=== PATIENT | male | born 1950 | race Caucasian/White ===

== ENCOUNTER → 2017-02-14 | Outpatient (CLI) | payer OTHER ==
[~2017-02-14] MED LIST: AMOX875T PO; ASPEC81 PO; ASPI81TA28 PO; ATOR-24 PO; CETI10TA10 PO; FEXO1TAB45 PO; LPR25 PO; LPT40 PO; MULT-877 PO; OMEP40CA41 PO; PLV75 PO; RANI150T3 PO
[2017-02-14 14:10] LABS: HEMATOCRIT 41.4 % (42-52); MEAN CELL VOLUME 84.3 fL (80-100); MEAN CORPUSCULAR HEMOGLOBIN 27.7 pg (25-34); MEAN CORPUSCULAR HGB CONC 32.9 g/dl (32-36); MEAN PLATELET VOLUME 9.1 fL (7.4-10.4); PLATELET COUNT 203 K/uL (130-400); RED BLOOD COUNT 4.91 M/uL (4.7-6.1); WHITE BLOOD COUNT 4.76 K/uL (4.8-10.8)
[2017-02-14 14:20] LABS: ESTIMATED AVERAGE GLUCOSE 117 mg/dl; HA1C FLAG Normal (Normal); PROSTATE SPECIFIC ANTIGEN 3.21 ng/ml (0.000-4.000)
--- NOTE | 2017-02-20 11:29 | CODING QUERY MEDICAL NECESSITY ---
CQSUPPORTING DIAGNOSIS NEEDED A supporting diagnosis is required for the test/procedure performed on this patient in order for us to be reimbursed by the patient's insurance. Please provide a supporting diagnosis for the following test/procedure listed below next to the test name along with your signature. *If there is no additional diagnosis for this patient that would support the following test/procedure please document that below next to the test/procedure. Test(s)/Procedure(s) that require a supporting diagnosis: DOS 02/14/17 GLYCATED HEMOGLOBIN TEST Provider Signature: Date: Thank you Dimple Velazquez Health Information Management Once completed, please kindly fax back to [phone] For questions please call [phone]
== END | disposition home or self-care (01) ==
LOC: C.LABMFLN 09:05
PROVIDERS: ATTEND Internal Medicine Cardiovascular Disease
DX: E78.5 Hyperlipidemia, unspecified (principal); I10 Essential (primary) hypertension; I25.10 Atherosclerotic heart disease of native coronary artery without angina pectoris; R00.1 Bradycardia, unspecified; N40.0 Benign prostatic hyperplasia without lower urinary tract symptoms; R74.8 Abnormal levels of other serum enzymes; R73.03 Prediabetes; R35.0 Frequency of micturition

== ENCOUNTER → 2017-06-27 | Outpatient (CLI) | payer OTHER ==
[~2017-06-27] MED LIST changes: -AMOX875T PO
--- NOTE | 2017-06-27 09:52 | DIAGNOSTIC IMAGING REPORT ---
MRCP CLINICAL HISTORY: Pancreatic cyst. COMPARISON STUDY: MRCP dated 06/24/2016. TECHNIQUE: Abdominal MRCP is performed utilizing various T2-weighted sequences in the axial and coronal planes. IV contrast was not administered for this examination. 3-D reformats are created and assessed. FINDINGS: The gallbladder is normal in appearance. There is no evidence of cholelithiasis. There is no intra or extrahepatic biliary ductal dilatation. The common bile duct measures up to 5 mm. There is no evidence of choledocholithiasis. The pancreatic duct is normal in caliber. 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 There is no pleural effusion. The liver, spleen, pancreas, adrenal glands, and kidneys otherwise grossly normal. There is no evidence of bowel obstruction. There is no abdominal ascites or lymphadenopathy seen. IMPRESSION: 1. Unremarkable MRCP. 2. There is unchanged appearance of two cystic lesions in the pancreatic body measuring up to 10 mm along the course of the pancreatic duct. 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 Dictated: 06/27/2017 9:21 AM Transcribed: 06/27/2017 9:52 AM Umberto Electronically signed by: Tomi Gonzalez M.D. 06/27/2017 10:01 AM Dictated Date/Time: 06/27/2017 9:21 AM
== END | disposition home or self-care (01) ==
LOC: C.MRI 08:32
PROVIDERS: ATTEND Registered Nurse
DX: K86.2 Cyst of pancreas (principal)

== ENCOUNTER 2017-08-05 18:00 | Inpatient (IN) | payer OTHER ==
[~2017-08-05] VITALS: Ht 167.6 cm; Wt 64.0 kg
[~2017-08-05 18:00] MED LIST changes: -ASPI81TA28 PO; -ATOR-24 PO; -OMEP40CA41 PO
[2017-08-05] MEDS ORDERED: SODIUM CHLORIDE 0.9% 1000ML 1,000 ML IV STA ×2 (18:17→19:07)
[2017-08-05] MEDS ORDERED: ONDANSETRON INJ 2 MG/ML 2 ML VIAL IV STA (18:17)
--- NOTE | 2017-08-05 18:22 | EMERGENCY ROOM VISIT NOTE ---
History Report prepared by Scribe: Josseline Jo Under the Supervision of: Dr. Daniel Luu D.O. First contact with patient: 18:07 Chief Complaint: ABDOMINAL PAIN Stated Complaint: VOMITING AND SEVERE PAIN IN STOMACH History of Present Illness The patient is a 67 year old male who presents to the Emergency Room with complaints of persistent abdominal pain that started yesterday. The pain is located in the middle of his abdomen and does not radiate anywhere. He rates his discomfort as a 10/10 in severity. He has also been nauseous and vomiting since yesterday. He has not eaten much of anything so far today. The patient denies any diarrhea. He has not experienced any pain or swelling in his legs. He believes he has been running a fever, but did not check his temperature at home. His urine has been dark in color but he denies any hematuria or dysuria. He denies any recent chest pain or shortness of breath. The patient has undergone an appendectomy but he still has his gallbladder. His PCP is Dr. Daniel Rodriguez. His reports he has experienced a previous NE and has [address] The patient takes a daily baby Aspirin, but no other blood thinners. He notes he did undergo a biopsy of his pancreas by Dr. Mac at [facility] recently, but states the biopsy came back negative. Source of History: patient, spouse/significant other () Onset: yesterday Position: abdomen Symptom Intensity: 10/10 Timing: other (persistent) Associated Symptoms: + fevers, + nausea, + vomiting, No chest pain, No SOB, No diarrhea, No urinary symptoms Review of Systems See HPI for pertinent positives & negatives. A total of 10 systems reviewed and were otherwise negative. Past Medical & Surgical Surgical Problems: (1) History of heart artery stent (2) History of hernia repair Family History Cancer Heart disease Hypertension Social History Smoking Status: Never Smoker Alcohol Use: occasionally Drug Use: none Marital Status: Housing Status: lives with significant other Occupation Status: retired Current/Historical Medications Scheduled Aspirin (Aspirin Ec), 81 MG PO DAILY Atorvastatin (Lipitor), 40 MG PO HS Multiple Vitamins W/ Minerals (Multiple Vitamin/Minerals), 1 TAB PO DAILY Omeprazole (Prilosec), 40 MG PO DAILY Scheduled PRN Cetirizine Hcl (Zyrtec), 10 MG PO DAILY PRN for ALLERGIC REACTION Ranitidine Hcl (Zantac), 150 MG PO DAILY PRN for GI Upset Allergies Coded Allergies: Fentanyl (Unverified Allergy, Severe, CONFUSION, 08/05/17) Midazolam (Unverified Allergy, Severe, CONFUSION, 08/05/17) Sulfa Antibiotics (Verified Allergy, Unknown, RASH, 08/05/17) Acetaminophen (Verified Adverse Reaction, Unknown, n/v, 08/05/17) Doxycycline (Unverified Adverse Reaction, Unknown, fever/ syncope, ) Oxycodone (Verified Adverse Reaction, Unknown, n/v, 08/05/17) Physical Exam Vital Signs Date Time Temp Pulse Resp B/P (MAP) Pulse Ox O2 Delivery O2 Flow Rate FiO2 08/05/17 19:38 61 16 160/83 97 Room Air 08/05/17 19:07 62 08/05/17 18:04 36.9 67 18 167/89 98 Room Air Physical Exam GENERAL: Patient is awake, alert, in no acute distress, patient is resting comfortably and showing no signs of anxiety EYES: The conjunctivae are clear. The pupils are round and reactive. EARS, NOSE, MOUTH AND THROAT: The nose is without any evidence of any deformity. Mucous membranes are moist tongue is midline NECK: The neck is nontender and supple. RESPIRATORY: Normal respiratory effort is noted there is no evidence of wheezing rhonchi or rales CARDIOVASCULAR: Regular rate and rhythm noted there no murmurs rubs or gallops normal S1 normal S2 GASTROINTESTINAL: The abdomen is moderately distended, significant epigastric and RUQ tenderness to palpation. BACK: No midline tenderness or or step-off noted range of motion in flexion extension as well as rotation no signs of muscle spasm noted MUSCULOSKELETAL/EXTREMITIES: There is no evidence of gross deformity full range of motion is noted in the hips and shoulders SKIN: There is no obvious evidence of any rash. There are no petechiae, pallor or cyanosis noted. NEUROLOGIC: Patient is awake alert and oriented x3 Medical Decision & Procedures ER Provider Diagnostic Interpretation: Radiology results as stated below per my review and radiologist interpretation: PA CHEST WITH ABDOMINAL SERIES CLINICAL HISTORY: Generalized abdominal pain. FINDINGS: A PA chest radiograph is compared to study dated 10/18/2014. The cardiomediastinal silhouette is unremarkable. The lungs and pleural spaces are clear. No pneumothorax is seen. The bony thorax is grossly intact. Supine and erect abdominal radiographs are correlated with MRCP dated 06/27/2017. There is a nonobstructed abdominal bowel gas pattern. No evidence of intraperitoneal free air is seen. There is moderate colonic fecal retention. There are no abnormal abdominal calcifications. The lumbosacral spine and bony pelvis appear intact. A metallic structure projecting over the left lower abdomen may be external to the patient. IMPRESSION: 1. No active disease in the chest. 2. Nonobstructed abdominal bowel gas pattern noting moderate colonic fecal retention. 3. A metallic structures projecting over the left pelvis may be external to the patient. Clinical correlation will be required. Electronically signed by: Tomi Gonzalez M.D. 08/05/2017 7:41 PM Laboratory Results 08/05/17 18:22 Red Blood Count 5.41, Mean Corpuscular Volume 82.3, Mean Corpuscular Hemoglobin 29.0, Mean Corpuscular Hemoglobin Concent 35.3, Mean Platelet Volume 9.4, Neutrophils (%) (Auto) 81.3, Lymphocytes (%) (Auto) 7.7, Monocytes (%) (Auto) 10.5, Eosinophils (%) (Auto) 0.1, Basophils (%) (Auto) 0.1, Neutrophils # (Auto ) 11.11, Lymphocytes # (Auto) 1.05, Monocytes # (Auto) 1.43, Eosinophils # (Auto ) 0.01, Basophils # (Auto) 0.01 08/05/17 18:22 Test 08/05/17 18:22 White Blood Count 13.65 K/uL (4.8-10.8) Red Blood Count 5.41 M/uL (4.7-6.1) Hemoglobin 15.7 g/dL (14.0-18.0) Hematocrit 44.5 % (42-52) Mean Corpuscular Volume 82.3 fL (80-100) Mean Corpuscular Hemoglobin 29.0 pg (25-34) Mean Corpuscular Hemoglobin Concent 35.3 g/dl (32-36) Platelet Count 197 K/uL (130-400) Mean Platelet Volume 9.4 fL (7.4-10.4) Neutrophils (%) (Auto) 81.3 % Lymphocytes (%) (Auto) 7.7 % Monocytes (%) (Auto) 10.5 % Eosinophils (%) (Auto) 0.1 % Basophils (%) (Auto) 0.1 % Neutrophils # (Auto) 11.11 K/uL (1.4-6.5) Lymphocytes # (Auto) 1.05 K/uL (1.2-3.4) Monocytes # (Auto) 1.43 K/uL (0.11-0.59) Eosinophils # (Auto) 0.01 K/uL (0-0.5) Basophils # (Auto) 0.01 K/uL (0-0.2) RDW Standard Deviation 45.6 fL (36.4-46.3) RDW Coefficient of Variation 15.1 % (11.5-14.5) Immature Granulocyte % (Auto) 0.3 % Immature Granulocyte # (Auto) 0.04 K/uL (0.00-0.02) Prothrombin Time 10.7 SECONDS (9.0-12.0) Prothromb Time International Ratio 1.0 (0.9-1.1) Activated Partial Thromboplast Time 23.8 SECONDS (21.0-31.0) Partial Thromboplastin Ratio 0.9 Urine Color ANAIS Urine Appearance CLEAR (CLEAR) Urine pH 5.5 (4.5-7.5) Urine Specific [place] 1.027 (1.000-1.030) Urine Protein 1+ (NEG) Urine Glucose (UA) NEG (NEG) Urine Ketones NEG (NEG) Urine Occult Blood 2+ (NEG) Urine Nitrite POS (NEG) Urine Bilirubin 1+ (NEG) Urine Urobilinogen NEG (NEG) Urine Leukocyte Esterase SMALL (NEG) Urine WBC (Auto) 10-30 /hpf (0-5) Urine RBC (Auto) 10-30 /hpf (0-4) Urine Hyaline Casts (Auto) 0 /lpf (0-5) Urine Epithelial Cells (Auto) 20-30 /lpf (0-5) Urine Bacteria (Auto) 1+ (NEG) Urine Mucus PRESENT (NONE PRSENT) Anion Gap 8.0 mmol/L (3-11) Est Creatinine Clear Calc Drug Dose 58.8 ml/min Estimated GFR () 80.1 Estimated GFR (Non- 69.1 BUN/Creatinine Ratio 13.0 (10-20) Calcium Level 8.8 mg/dl (8.5-10.1) Total Bilirubin 2.7 mg/dl (0.2-1) Direct Bilirubin 1.1 mg/dl (0-0.2) Aspartate Amino Transf (AST/SGOT) 47 U/L (15-37) Alanine Aminotransferase (ALT/SGPT) 73 U/L (12-78) Alkaline Phosphatase 256 U/L (45-117) Total Creatine Kinase 98 U/L (39-308) Creatine Kinase MB 0.9 ng/ml (0.5-3.6) Creatine Kinase MB Ratio 0.9 (0-3.0) Troponin I < 0.015 ng/ml (0-0.045) Total Protein 7.5 gm/dl (6.4-8.2) Albumin 4.0 gm/dl (3.4-5.0) Lipase 4115 U/L (73-393) Laboratory results per my review. Medications Administered Medications (Trade) Dose Ordered Sig/Jay Jay Route Start Time Stop Time Status Last Admin Dose Admin Sodium Chloride 1,000 ml @ 999 mls/hr Q1H1M STAT IV 08/05/17 18:17 08/05/17 19:17 DC 08/05/17 18:32 999 MLS/HR Ondansetron HCl (Zofran Inj) 4 mg NOW STAT IV 08/05/17 18:17 08/05/17 18:19 DC 08/05/17 18:36 4 MG Morphine Sulfate (MoRPHine SULFATE INJ) 4 mg Q15M PRN IV 08/05/17 18:30 08/19/17 18:29 08/05/17 18:37 4 MG Pantoprazole Sodium 40 mg/ Syringe 10 ml @ 5 mls/min NOW ONCE IV 08/05/17 19:15 08/05/17 19:16 DC 08/05/17 19:35 5 MLS/MIN Famotidine (Pepcid 20mg/100 ml) 20 mg ONE STAT IV 08/05/17 19:07 08/05/17 19:09 DC 08/05/17 19:20 20 MG Sodium Chloride 1,000 ml @ 200 mls/hr Q5H STAT IV 08/05/17 19:07 08/05/17 21:24 DC 08/05/17 19:52 200 MLS/HR ECG Indication: abdominal pain Rate (beats per minute): 61 Rhythm: normal sinus Findings: no ectopy, other (no acute ST segment abnormalities) Change: no significant change (No change from 10/19/2014) ED Course 1812: The patient was evaluated in room C6. A complete history and physical examination were performed. 1816: Zofran 4 mg IV, NSS 1000 ml @ 999 mls/hr IV. 1829: Morphine Sulfate 4 mg IV. 1904: I reevaluated the patient. He is resting comfortably. I discussed his results so far. 1906: NSS 1000 ml @ 200 mls/hr IV, Famotidine 20 mg IV. 1914: Pantoprazole Sodium 40 mg/Syringe 10 ml @ 5 mls/min IV. 1943: I discussed the patients case with Dr. Barker. She recommends the patient be further evaluated by the hospital medicine team. 2014: I discussed the patients case with Dr. Jiang, [facility] Hospitalist. The patient will be further evaluated. Medical Decision Prior records/ancillary studies reviewed. Triage Nursing notes reviewed. The patient's history was concerning for abdominal pain. Differential diagnosis: Etiologies such as appendicitis, diverticulitis, PUD, biliary pathology, UTI, pancreatitis, obstruction, mesenteric ischemia, aortic pathology, infections, inflammatory bowel disease, renal colic, as well as others were entertained. The patient is a 67-year-old male who presented to the emergency department for evaluation of epigastric and right upper quadrant abdominal pain. The patient has had upper abdominal pain recently and was diagnosed with a pancreatic cyst. He had an ERCP with Dr. Mac and had biopsy of the pancreatic cyst on June 27. The patient states that over the last few days he's been having worsening upper abdominal pain. This started with nausea and vomiting as well. On physical exam he had very significant abdominal tenderness. He was found have an elevated white blood cell count. He also had an elevation in his lipase. I reviewed the patient's previous radiographic studies. His MRCP was negative for gallbladder pathology at that time. He was not found have gallstones on previous radiographic studies. The patient was treated with IV fluids IV pain medicine and IV antiemetics. He was also given proton pump inhibitors and H2 blockers. I discussed his case with the on-call gastroenterology's. At this time they're recommending that we continue to treat the patient with nothing by mouth status and IV pain medication IV fluids. I discussed his case with the on-call [facility] hospitalist. They've agreed to evaluate the patient in the emergency department for further management and disposition. Medication Reconcilliation Current Medication List: was personally reviewed by me Blood Pressure Screening Patient's blood pressure: Elevated blood pressure Blood pressure disposition: Elevated BP felt to be situational Consults Time Called: 1935 Consulting Physician: [facility] Returned Call: 1943 I discussed the patients case with [facility]. She recommends the patient be further evaluated by the hospital medicine team. Additional Consults: Time Called: 1954 Consulted Physician: Dr. Jiang [facility] Hospitalist Returned Call: 2014 Additional Comments: I discussed the patients case with Dr. Jiang [facility] Hospitalist. The patient will be further evaluated. Impression Primary Impression: Pancreatitis Additional Impressions: Nausea & vomiting Abdominal pain Scribe Attestation The scribe's documentation has been prepared under my direction and personally reviewed by me in its entirety. I confirm that the note above accurately reflects all work, treatment, procedures, and medical decision making performed by me. Departure Information Dispostion Being Evaluated By Hospitalist Referrals Daniel Rodriguez M.D. (PCP) Patient Instructions My [facility] Problem Qualifiers Primary Impression: Pancreatitis Chronicity: acute Pancreatitis type: unspecified pancreatitis type Acute pancreatitis complication: unspecified Qualified Codes: K85.90 - Acute pancreatitis without necrosis or infection, unspecified Additional Impressions: Nausea & vomiting Vomiting type: unspecified Vomiting Intractability: non-intractable Qualified Codes: R11.2 - Nausea with vomiting, unspecified Abdominal pain Abdominal location: epigastric Qualified Codes: R10.13 - Epigastric pain
[2017-08-05] MEDS ORDERED: MoRPHine SULFATE 4 MG/ML 1 ML CARP\\VIAL IV PRN (18:30)
[2017-08-05 18:31] LABS: BASO % 0.1 %; BASO ABS # 0.01 K/uL (0-0.2); COMPLETE YES; EOS % 0.1 %; HEMATOCRIT 44.5 % (42-52); IG% 0.3 %; LYMPH % 7.7 %; LYMPH ABS # 1.05 K/uL (1.2-3.4); MEAN CELL VOLUME 82.3 fL (80-100); MEAN CORPUSCULAR HGB CONC 35.3 g/dl (32-36); MEAN PLATELET VOLUME 9.4 fL (7.4-10.4); MONO % 10.5 %; NEUT % 81.3 %; PLATELET COUNT 197 K/uL (130-400); RED BLOOD COUNT 5.41 M/uL (4.7-6.1); WHITE BLOOD COUNT 13.65 K/uL (4.8-10.8)
[2017-08-05 18:43] LABS: PARTIAL THROMBOPLASTIN RATIO 0.9; PROTHROMBIN TIME (PATIENT) 10.7 SECONDS (9.0-12.0)
[2017-08-05 18:51] LABS: ALT/SGPT 73 U/L (12-78); BLOOD UREA NITROGEN 14 mg/dl (7-18); CALCIUM 8.8 mg/dl (8.5-10.1); CARBON DIOXIDE 28 mmol/L (21-32); CHLORIDE 101 mmol/L (98-107); GLUCOSE 118 mg/dl (70-99); POTASSIUM 3.9 mmol/L (3.5-5.1); SODIUM 137 mmol/L (136-145)
[2017-08-05 18:56] LABS: ALKALINE PHOSPHATASE 256 U/L (45-117); AST/SGOT 47 U/L (15-37); CKMB/CK RATIO 0.9 (0-3.0)
[2017-08-05] MEDS ORDERED: FAMOTIDINE 20MG/102 ML D5W IV STA (19:07)
[2017-08-05] MEDS ORDERED: PANTOprazole INJ 40 MG in SYRINGE 0 ML IV ONE (19:15)
[2017-08-05 19:25] LABS: URINE APPEARANCE CLEAR (CLEAR); URINE EPITHELIAL CELL AUTO 20-30 /lpf (0-5); URINE NITRITE POS (NEG); URINE PH 5.5 (4.5-7.5); URINE SPECIFIC GRAVITY 1.027 (1.000-1.030); UROBILINOGEN NEG (NEG)
[2017-08-05 19:26] LABS: URINE BILIRUBIN 1+ (NEG)
[2017-08-05 19:29] LABS: MANUAL MICROSCOPIC REQUIRED? NO; REVIEW REQ? YES; URINE COLOR AMBER
[2017-08-05 19:35] LABS: URINE MUCUS PRESENT (NONE PRSENT)
[2017-08-05] MEDS ORDERED: ASPI81TA28 PO (19:35)
[2017-08-05] MEDS ORDERED: ATOR-24 PO (19:35)
[2017-08-05] MEDS ORDERED: OMEP40CA41 PO (19:35)
--- NOTE | 2017-08-05 19:42 | DIAGNOSTIC IMAGING REPORT ---
PA CHEST WITH ABDOMINAL SERIES CLINICAL HISTORY: Generalized abdominal pain. FINDINGS: A PA chest radiograph is compared to study dated 10/18/2014. The cardiomediastinal silhouette is unremarkable. The lungs and pleural spaces are clear. No pneumothorax is seen. The bony thorax is grossly intact. Supine and erect abdominal radiographs are correlated with MRCP dated 06/27/2017. There is a nonobstructed abdominal bowel gas pattern. No evidence of intraperitoneal free air is seen. There is moderate colonic fecal retention. There are no abnormal abdominal calcifications. The lumbosacral spine and bony pelvis appear intact. A metallic structure projecting over the left lower abdomen may be external to the patient. IMPRESSION: 1. No active disease in the chest. 2. Nonobstructed abdominal bowel gas pattern noting moderate colonic fecal retention. 3. A metallic structures projecting over the left pelvis may be external to the patient. Clinical correlation will be required. Electronically signed by: Tomi Gonzalez M.D. 08/05/2017 7:41 PM Dictated Date/Time: 08/05/2017 7:39 PM
[2017-08-05] MEDS ORDERED: MAGNESIUM HYDROXIDE SUSP 30 ML UDC PO PRN (20:00)
[2017-08-05] MEDS ORDERED: ACETAMINOPHEN 325 MG TAB PO PRN (20:00)
[2017-08-05] MEDS ORDERED: ONDANSETRON INJ 2 MG/ML 2 ML VIAL IV PRN (20:00)
[2017-08-05] MEDS ORDERED: ALUMINUM/MAGNESIUM/SIMETH (MAALOX MAX) 30 ML UDC PO PRN (20:00)
[2017-08-05] MEDS ORDERED: ZOLPIDEM TARTRATE 5 MG TAB PO PRN (20:00)
[2017-08-05] MEDS ORDERED: HYDROmorphone INJ 0.5 MG/0.5 ML SYR IV PRN (20:00)
[2017-08-05] MEDS ORDERED: POLYETHYLENE (MIRALAX) 17 GM PACK PO PRN (20:00)
--- NOTE | 2017-08-05 20:36 | History and Physical ---
History & Physical Date & Time of Service: Aug 05, 2017 at 20:17 Chief Complaint: Vomiting And Severe Pain In Stomach Primary Care Physician: Daniel Rodriguez M.D. History of Present Illness Source: patient 67 y/o M Hx CAD, GERD - recent workup including biopsy for a pancreatic body lesion which is likely a cyst. Presents with abdominal pain - described as epigastric - nausea, vomiting and fever. Denies CP, SOB. Initial labs are consistent with acute pancreatitis. An ERCP and [ancreatic biopsy were performed on 06/27 and are likely unrelated. Past Medical/Surgical History 1) Pancreatic cysts 2) CAD - STEMI 2013 - L circ stent 3) Echo done in wake of [place] reveledd an EF of 40% with inf akinesis - this has apparently recovered 4) GERD Family History Cancer Heart disease Hypertension Social History Smoking Status: Never Smoker Drug Use: none Marital Status: Occupational Status: retired Allergies Coded Allergies: Fentanyl (Unverified Allergy, Severe, CONFUSION, 08/05/17) Midazolam (Unverified Allergy, Severe, CONFUSION, 08/05/17) Sulfa Antibiotics (Verified Allergy, Unknown, RASH, 08/05/17) Acetaminophen (Verified Adverse Reaction, Unknown, n/v, 08/05/17) Doxycycline (Unverified Adverse Reaction, Unknown, fever/ syncope, ) Oxycodone (Verified Adverse Reaction, Unknown, n/v, 08/05/17) Home Medications Scheduled Aspirin (Aspirin Ec), 81 MG PO DAILY Atorvastatin (Lipitor), 40 MG PO HS Multiple Vitamins W/ Minerals (Multiple Vitamin/Minerals), 1 TAB PO DAILY Omeprazole (Prilosec), 40 MG PO DAILY Scheduled PRN Cetirizine Hcl (Zyrtec), 10 MG PO DAILY PRN for ALLERGIC REACTION Ranitidine Hcl (Zantac), 150 MG PO DAILY PRN for GI Upset Review of Systems Constitutional: No fever, No chills, No sweats Eyes: No worsening of vision ENT: No hearing loss, No nasal symptoms Respiratory: No cough, No wheezing Cardiovascular: No chest pain, No PND Abdomen: + pain, + nausea, + vomiting Musculoskeletal: No joint pain Genitourinary - Male: No hematuria Neurologic: No memory loss, No weakness Psychiatric: No depression symptoms Endocrine: No fatigue Hematologic / Lymphatic: No abnormal bleeding/bruising Integumentary: No rash Allergic / Immunologic: No environmental allergies Physical Exam Vital Signs Date Time Temp Pulse Resp B/P (MAP) Pulse Ox O2 Delivery O2 Flow Rate FiO2 08/05/17 19:38 61 16 160/83 97 Room Air 08/05/17 19:07 62 08/05/17 18:04 36.9 67 18 167/89 98 Room Air General Appearance: WD/WN, no apparent distress Head: normocephalic Eyes: normal inspection ENT: normal ENT inspection, pharynx normal Neck: supple, no JVD Respiratory/Chest: chest non-tender, lungs clear, normal breath sounds Cardiovascular: regular rate, rhythm, no edema, no gallop, no JVD, no murmur, normal peripheral pulses Abdomen/GI: normal bowel sounds, soft, + tenderness (Mostly mid and RUQ) Back: normal inspection, no CVA tenderness Extremities/Musculoskelatal: normal inspection, no calf tenderness, normal capillary refill 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, no motor/sensory deficits, alert, normal mood/affect, normal reflexes, oriented x 3 Skin: normal color Diagnostics Laboratory Results Results Past 24 Hours Test 08/05/17 18:22 Range/Units White Blood Count 13.65 4.8-10.8 K/uL Red Blood Count 5.41 4.7-6.1 M/uL Hemoglobin 15.7 14.0-18.0 g/dL Hematocrit 44.5 42-52 % Mean Corpuscular Volume 82.3 80-100 fL Mean Corpuscular Hemoglobin 29.0 25-34 pg Mean Corpuscular Hemoglobin Concent 35.3 32-36 g/dl Platelet Count 197 130-400 K/uL Mean Platelet Volume 9.4 7.4-10.4 fL Neutrophils (%) (Auto) 81.3 % Lymphocytes (%) (Auto) 7.7 % Monocytes (%) (Auto) 10.5 % Eosinophils (%) (Auto) 0.1 % Basophils (%) (Auto) 0.1 % Neutrophils # (Auto) 11.11 1.4-6.5 K/uL Lymphocytes # (Auto) 1.05 1.2-3.4 K/uL Monocytes # (Auto) 1.43 0.11-0.59 K/uL Eosinophils # (Auto) 0.01 0-0.5 K/uL Basophils # (Auto) 0.01 0-0.2 K/uL RDW Standard Deviation 45.6 36.4-46.3 fL RDW Coefficient of Variation 15.1 11.5-14.5 % Immature Granulocyte % (Auto) 0.3 % Immature Granulocyte # (Auto) 0.04 0.00-0.02 K/uL Prothrombin Time 10.7 9.0-12.0 SECONDS Prothromb Time International Ratio 1.0 0.9-1.1 Activated Partial Thromboplast Time 23.8 21.0-31.0 SECONDS Partial Thromboplastin Ratio 0.9 Urine Color ANAIS Urine Appearance CLEAR CLEAR Urine pH 5.5 4.5-7.5 Urine Specific [place] 1.027 1.000-1.030 Urine Protein 1+ NEG Urine Glucose (UA) NEG NEG Urine Ketones NEG NEG Urine Occult Blood 2+ NEG Urine Nitrite POS NEG Urine Bilirubin 1+ NEG Urine Urobilinogen NEG NEG Urine Leukocyte Esterase SMALL NEG Urine WBC (Auto) 10-30 0-5 /hpf Urine RBC (Auto) 10-30 0-4 /hpf Urine Hyaline Casts (Auto) 0 0-5 /lpf Urine Epithelial Cells (Auto) 20-30 0-5 /lpf Urine Bacteria (Auto) 1+ NEG Urine Mucus PRESENT NONE PRSENT Sodium Level 137 136-145 mmol/L Potassium Level 3.9 3.5-5.1 mmol/L Chloride Level 101 98-107 mmol/L Carbon Dioxide Level 28 21-32 mmol/L Anion Gap 8.0 3-11 mmol/L Blood Urea Nitrogen 14 7-18 mg/dl Creatinine 1.10 0.60-1.40 mg/dl Est Creatinine Clear Calc Drug Dose 58.8 ml/min Estimated GFR () 80.1 Estimated GFR (Non- 69.1 BUN/Creatinine Ratio 13.0 10-20 Random Glucose 118 70-99 mg/dl Calcium Level 8.8 8.5-10.1 mg/dl Total Bilirubin 2.7 0.2-1 mg/dl Direct Bilirubin 1.1 0-0.2 mg/dl Aspartate Amino Transf (AST/SGOT) 47 15-37 U/L Alanine Aminotransferase (ALT/SGPT) 73 12-78 U/L Alkaline Phosphatase 256 45-117 U/L Total Creatine Kinase 98 39-308 U/L Creatine Kinase MB 0.9 0.5-3.6 ng/ml Creatine Kinase MB Ratio 0.9 0-3.0 Troponin I < 0.015 0-0.045 ng/ml Total Protein 7.5 6.4-8.2 gm/dl Albumin 4.0 3.4-5.0 gm/dl Lipase 4115 73-393 U/L Diagnostic Radiology MRCP 06/27 10 mm and 8 mm cystic lesions in the pancreatic body adjacent to the main duct Impression Assessment and Plan 67 y/o M Hx CAD, GERD - recent workup including biopsy for a pancreatic body lesion which is likely a cyst. Presents with abdominal pain - described as epigastric - nausea, vomiting and fever. Denies CP, SOB. Initial labs are consistent with acute pancreatitis. An ERCP and pancreatic biopsy were performed on 06/27 and are likely unrelated. 1) Acute pancreatitis - we are pending a biliary ultrasound as his LFTs are elevated which may indicate a distal obstruction. If there is ductal dilatation , we may proceed to a CT scan. The pt's content management specialist has been consulted. Pt will be kept NPO, placed on IVF and narcotics as needed for pain control. The pt has leukocytosis and describes a fever at home so that we will start IV antibiotics pending AM eval. 2) CAD - No evidence of ACS - cont ASA, Statin 3) GERD - cont PPi Full code - Heparin prophylaxis - total time for this admit including review of labs, meds, imabing, records - discussion with pt and ER attending - 37 min Level of Care Med/Surg Resuscitation Status FULL RESUSCITATION VTE Prophylaxis VTE Risk Assessment Done? Y/N: Yes Risk Level: Moderate Given or contraindicated: Unfractionated heparin SQ
[2017-08-05 21:53] VITALS: BP 148/78; PULSE 74; TEMP 37.1; O2SAT 95; Ht 167.6 cm; Wt 64.0 kg
[2017-08-05] MEDS: ERTAPENEM IV 1 GM in SODIUM CHLOR 0.9% AD-VAN 50ML 50 ML IV SCH (22:12)
[2017-08-05] MEDS: D5NSS + 20MEQ KCL 1,000 ML IV SCH (22:12)
[2017-08-05] MEDS: HEPARIN SOD 5000 UNIT/0.5 ML CARP SQ SCH (22:22)
[2017-08-05] MEDS: ATORVASTATIN 20 MG TAB PO SCH (23:47)
[2017-08-06] VITALS (9 sets, daily range): BP systolic 103–157; BP diastolic 63–86; PULSE 48–66; TEMP 36.4–36.9; O2SAT 95–99
[2017-08-06] MEDS: D5NSS + 20MEQ KCL 1,000 ML IV SCH (04:39)
[2017-08-06] MEDS: HEPARIN SOD 5000 UNIT/0.5 ML CARP SQ SCH ×3 (06:11→21:44)
[2017-08-06 06:55] LABS: HEMATOCRIT 39.8 % (42-52); MEAN CELL VOLUME 83.3 fL (80-100); MEAN CORPUSCULAR HEMOGLOBIN 27.8 pg (25-34); MEAN CORPUSCULAR HGB CONC 33.4 g/dl (32-36); MEAN PLATELET VOLUME 9.8 fL (7.4-10.4); PLATELET COUNT 157 K/uL (130-400); RED BLOOD COUNT 4.78 M/uL (4.7-6.1); WHITE BLOOD COUNT 11.76 K/uL (4.8-10.8)
[2017-08-06 07:19] LABS: CALCIUM 7.9 mg/dl (8.5-10.1); MAGNESIUM 1.9 mg/dl (1.8-2.4)
--- NOTE | 2017-08-06 07:46 | DIAGNOSTIC IMAGING REPORT ---
ABDOMINAL ULTRASOUND, RIGHT UPPER QUADRANT HISTORY: Generalized abdominal pain.. COMPARISON: MRCP 06/27/2017. FINDINGS: Pancreas: Not well visualized due to overlying bowel gas. Liver: Unremarkable. Gallbladder: There is gallbladder wall thickening measuring up to 5 mm. There are appears to be gallbladder sludge. Possible small stone at the gallbladder neck. Punctate echogenic focus at the gallbladder fundus. CBD: 5 mm. Right kidney: No hydronephrosis. IMPRESSION: Diffuse gallbladder wall thickening with gallbladder sludge and a possible stone at the gallbladder neck. This is new from the prior studies and raises the possibility of acute cholecystitis. Clinical correlation recommended. Electronically signed by: Yunier Vickers M.D. 08/06/2017 7:45 AM Dictated Date/Time: 08/06/2017 7:41 AM
[2017-08-06] MEDS ORDERED: INFLUENZA VACCINE HIGH DOSE 65+ 0.5 ML SYR IM. ONE (08:00)
[2017-08-06] MEDS ORDERED: INFLUENZA ADMINISTRATION CHARGE ONE (08:00)
[2017-08-06] MEDS ORDERED: NON-FORMULARY MEDICATION (Omeprazole (Prilosec) 40 MG) PO SCH (09:00)
[2017-08-06] MEDS: ASPIRIN 81 MG ECTAB PO SCH (10:51)
[2017-08-06] MEDS: AMPICILLIN/SULBACTAM SOD INJ 3,000 MG in SODIUM CHLORIDE 0.9% 100ML 100 ML IV SCH ×3 (10:51→20:37)
--- NOTE | 2017-08-06 10:52 | Gastrointestinal Consultation ---
Gastrointestinal Consultation Date of Consultation: Aug 06, 2017 Attending Physician: Dr. Pope Consulting Physician: Dr. Barker Reason for Consultation: pancreatitis History of Present Illness Patient is a 67 year old male with a known benign pancreatic cyst (s/p EUS with biopsy on [address] Mac) who presented ot the ER last night with complaints of nausea, vomiting and abdominal pain for 24+ hours. On arrival he was tachycardic. Labs were significant for elevated lipase of 4000 as well as Tbili of 2.7, Dbili of 1.1 and AP of 250. WBC was also elevated with a left shift. Imaging was significant for gallbladder wall thickening to 5mm as well as a possible stone in the GB neck. He was made NPO, given IVF and PRN pain meds and antiemetics and is feeling much better this morning. Pain has almost completely resolved. Labs this AM show improvement of lipase, bili, and AP ( not yet normalized). Past Medical/Surgical History Medical Problems: (1) Pancreatitis Status: Acute Past Medical History: as noted in HPI Past Surgical History: reviewed with patient, non-contributory Family History Cancer Heart disease Hypertension non-contributory Social History Smoking Status: Never Smoker Alcohol Use: occasionally Drug Use: none Marital Status: Housing Status: lives with significant other Occupation Status: retired Allergies Coded Allergies: Fentanyl (Unverified Allergy, Severe, CONFUSION, 08/05/17) Midazolam (Unverified Allergy, Severe, CONFUSION, 08/05/17) Sulfa Antibiotics (Verified Allergy, Unknown, RASH, 08/05/17) Acetaminophen (Verified Adverse Reaction, Unknown, n/v, 08/05/17) Doxycycline (Unverified Adverse Reaction, Unknown, fever/ syncope, ) Oxycodone (Verified Adverse Reaction, Unknown, n/v, 08/05/17) Current Medications Home Meds and Scripts Medications Dose Route/Sig Max Daily Dose Days Date Category Lipitor (Atorvastatin Calcium) 40 Mg Tab 40 Mg PO HS 08/05/17 Reported Aspirin Ec (Aspirin) 81 Mg Tab 81 Mg PO DAILY 08/05/17 Reported Prilosec (Omeprazole) 40 Mg Cap 40 Mg PO DAILY 08/05/17 Reported Multiple Vitamin/Minerals (Multiple Vitamins W/ Minerals) 1 Tab Tab 1 Tab PO DAILY 10/18/14 Reported Zyrtec (Cetirizine Hcl) 10 Mg Tab 10 Mg PO DAILY PRN 10/18/14 Reported Zantac (Ranitidine HCl) 150 Mg Tab 150 Mg PO DAILY PRN 10/18/14 Reported Review of Systems 12 systems reviewed and negative except as noted in HPI Physical Exam Date Time Temp Pulse Resp B/P (MAP) Pulse Ox O2 Delivery O2 Flow Rate FiO2 08/06/17 08:00 99 Room Air 08/06/17 07:19 36.9 66 18 116/73 (87) 99 08/06/17 00:00 Room Air 08/05/17 21:53 37.1 74 18 148/78 95 Room Air 08/05/17 20:57 74 18 146/86 97 08/05/17 20:49 70 18 146/86 95 08/05/17 19:38 61 16 160/83 97 Room Air 08/05/17 19:07 62 08/05/17 18:04 36.9 67 18 167/89 98 Room Air General Appearance: WD/WN, no apparent distress Eyes: normal inspection, PERRL ENT: normal ENT inspection, hearing grossly normal, pharynx normal Neck: supple, no adenopathy, no JVD Respiratory/Chest: chest non-tender, lungs clear, normal breath sounds, no accessory muscle use Cardiovascular: regular rate, rhythm, no edema, no murmur Abdomen: normal bowel sounds, non tender, soft Extremities: normal range of motion, non-tender, no pedal edema, no calf tenderness Neurologic/Psych: forging machine hand II-XII nml as tested, no motor/sensory deficits, alert, normal mood/affect, oriented x 3 Skin: normal color, no jaundice, warm/dry, no rash Laboratory Results Last 24 Hours Test 08/05/17 18:22 08/06/17 06:30 White Blood Count 13.65 K/uL 11.76 K/uL Red Blood Count 5.41 M/uL 4.78 M/uL Hemoglobin 15.7 g/dL 13.3 g/dL Hematocrit 44.5 % 39.8 % Mean Corpuscular Volume 82.3 fL 83.3 fL Mean Corpuscular Hemoglobin 29.0 pg 27.8 pg Mean Corpuscular Hemoglobin Concent 35.3 g/dl 33.4 g/dl Platelet Count 197 K/uL 157 K/uL Mean Platelet Volume 9.4 fL 9.8 fL Neutrophils (%) (Auto) 81.3 % Lymphocytes (%) (Auto) 7.7 % Monocytes (%) (Auto) 10.5 % Eosinophils (%) (Auto) 0.1 % Basophils (%) (Auto) 0.1 % Neutrophils # (Auto) 11.11 K/uL Lymphocytes # (Auto) 1.05 K/uL Monocytes # (Auto) 1.43 K/uL Eosinophils # (Auto) 0.01 K/uL Basophils # (Auto) 0.01 K/uL RDW Standard Deviation 45.6 fL 47.5 fL RDW Coefficient of Variation 15.1 % 15.5 % Immature Granulocyte % (Auto) 0.3 % Immature Granulocyte # (Auto) 0.04 K/uL Prothrombin Time 10.7 SECONDS Prothromb Time International Ratio 1.0 Activated Partial Thromboplast Time 23.8 SECONDS Partial Thromboplastin Ratio 0.9 Urine Color ANAIS Urine Appearance CLEAR Urine pH 5.5 Urine Specific [place] 1.027 Urine Protein 1+ Urine Glucose (UA) NEG Urine Ketones NEG Urine Occult Blood 2+ Urine Nitrite POS Urine Bilirubin 1+ Urine Urobilinogen NEG Urine Leukocyte Esterase SMALL Urine WBC (Auto) 10-30 /hpf Urine RBC (Auto) 10-30 /hpf Urine Hyaline Casts (Auto) 0 /lpf Urine Epithelial Cells (Auto) 20-30 /lpf Urine Bacteria (Auto) 1+ Urine Mucus PRESENT Sodium Level 137 mmol/L 139 mmol/L Potassium Level 3.9 mmol/L 4.0 mmol/L Chloride Level 101 mmol/L 108 mmol/L Carbon Dioxide Level 28 mmol/L 26 mmol/L Anion Gap 8.0 mmol/L 6.0 mmol/L Blood Urea Nitrogen 14 mg/dl 11 mg/dl Creatinine 1.10 mg/dl 1.00 mg/dl Est Creatinine Clear Calc Drug Dose 58.8 ml/min 64.6 ml/min Estimated GFR () 80.1 89.9 Estimated GFR (Non- 69.1 77.5 BUN/Creatinine Ratio 13.0 11.0 Random Glucose 118 mg/dl 110 mg/dl Calcium Level 8.8 mg/dl 7.9 mg/dl Total Bilirubin 2.7 mg/dl 1.7 mg/dl Direct Bilirubin 1.1 mg/dl 0.5 mg/dl Aspartate Amino Transf (AST/SGOT) 47 U/L 31 U/L Alanine Aminotransferase (ALT/SGPT) 73 U/L 50 U/L Alkaline Phosphatase 256 U/L 194 U/L Total Creatine Kinase 98 U/L Creatine Kinase MB 0.9 ng/ml Creatine Kinase MB Ratio 0.9 Troponin I < 0.015 ng/ml Total Protein 7.5 gm/dl 6.2 gm/dl Albumin 4.0 gm/dl 3.2 gm/dl Lipase 4115 U/L 1218 U/L Magnesium Level 1.9 mg/dl Impression Patient is a 67 year old male with pancreatic cysts (benign) who presented to the ER with complaints of nausea, vomiting and abd pain and labs consistent with pancreatitis. Imaging and pattern of LFT elevation consistent with GB/ stone source. Numbers and symptoms better this AM. Plan - Surgical consultation for cholecystectomy. - Follow LFTs and lipase tomorrow. - Once pain has resolved OK to slowly advance diet as tolerated pending surgery plans. - IVF hydration at 200ml/hr. - PRN analgesia and anti-emetics.
--- NOTE | 2017-08-06 12:00 | History and Physical ---
History & Physical Date Aug 06, 2017. Chief Complaint abd pain History of Present Illness The patient is a 67 year old male with complaints of abd pain- w/u shows likely gallstone pancreatitis- lipase coming down evidence on u/s of acute cholecystitis w/ stone in neck of gb. Past Medical/Surgical History Surgical Problems: (1) History of heart artery stent (2) History of hernia repair Allergies Coded Allergies: Fentanyl (Unverified Allergy, Severe, CONFUSION, 08/05/17) Midazolam (Unverified Allergy, Severe, CONFUSION, 08/05/17) Sulfa Antibiotics (Verified Allergy, Unknown, RASH, 08/05/17) Acetaminophen (Verified Adverse Reaction, Unknown, n/v, 08/05/17) Doxycycline (Unverified Adverse Reaction, Unknown, fever/ syncope, ) Oxycodone (Verified Adverse Reaction, Unknown, n/v, 08/05/17) Home Medications Scheduled Aspirin (Aspirin Ec), 81 MG PO DAILY Atorvastatin (Lipitor), 40 MG PO HS Multiple Vitamins W/ Minerals (Multiple Vitamin/Minerals), 1 TAB PO DAILY Omeprazole (Prilosec), 40 MG PO DAILY Scheduled PRN Cetirizine Hcl (Zyrtec), 10 MG PO DAILY PRN for ALLERGIC REACTION Ranitidine Hcl (Zantac), 150 MG PO DAILY PRN for GI Upset Physical Examination Skin: warm/dry Head: atraumatic Respiratory/Chest: no respiratory distress Cardiovascular: regular rate, rhythm Abdomen / GI: + pertinent finding (soft, min pain) Neurologic/Psych: alert Diagnosis acute cholecystitis Plan of Treatment for laparoscopic cholecystectomy, possible open operation. pt at risk for developing necrotizing cholecystitis OR today
[2017-08-06] MEDS ORDERED: LABETALOL HCL IV 5 MG/ML 20ML IV PRN (12:45)
[2017-08-06] MEDS ORDERED: ONDANSETRON INJ 2 MG/ML 2 ML VIAL IV PRN ×2 (12:45→18:45)
[2017-08-06] MEDS ORDERED: MEPERIDINE HCL 25 MG/ML CARP IV PRN (12:45)
[2017-08-06] MEDS ORDERED: EpHEDrine SULFATE INJ 50 MG/ML AMP IV PRN (12:45)
[2017-08-06] MEDS ORDERED: HYDROmorphone INJ 1 MG/ML SYR IV PRN ×2 (12:45→18:45)
[2017-08-06] MEDS ORDERED: ATROPINE SULFATE 0.1 MG/ML 5ML SYR IV PRN (12:45)
[2017-08-06] MEDS ORDERED: HYDROmorphone INJ 2 MG/ML SYR/VIAL ONE (17:38)
[2017-08-06] MEDS ORDERED: PROPOFOL IV EMULSION 10 MG/ML 20 ML VIAL IV ONE (17:38)
[2017-08-06] MEDS ORDERED: ONDANSETRON INJ 2 MG/ML 2 ML VIAL ONE (17:39)
[2017-08-06] MEDS ORDERED: ROCURONIUM BROMIDE 10 MG/ML 5 ML VIAL IV ONE (17:39)
[2017-08-06] MEDS ORDERED: LIDOCAINE HCL 2% 2 ML VIAL (20MG/ML) ONE (17:39)
--- NOTE | 2017-08-06 17:40 | Family Medicine Progress Note ---
Progress Note Date of Service Aug 06, 2017. Subjective Pt evaluation today including: conversation w/ patient, physical exam, chart review, lab review Pain: well-controlled PO Intake: nothing by mouth Voiding: no voiding problems 67-year-old male with past medical history of coronary artery disease status post stent placement, GERD, status post EUS with biopsy of a pancreatic cyst present to the ER with complaints of epigastric pain, nausea and vomiting with started about 2 days ago. He also complained of a low-grade fever. Initial labs were consistent with acute pancreatitis and he was made nothing by mouth and treated with IV fluids. States that his pain is fairly well controlled. Denies any new episodes of vomiting but continues to feel nauseous. Denies any chest pain, shortness of breath. Constitutional: No fever, No chills Eyes: No worsening of vision ENT: No hearing loss Respiratory: No cough, No sputum Cardiovascular: No chest pain Abdomen: + pain (epigastric area), + nausea, + vomiting Musculoskeletal: No joint pain Male : No dysuria, No incontinence Neurologic: No memory loss Psychiatric: No depression symptoms Heme: No abnormal bleeding/bruising Medications Current Inpatient Medications Medications (Trade) Dose Ordered Sig/[place] Route Start Time Stop Time Status Last Admin Dose Admin Heparin Sodium (Porcine) (Heparin Sq 5000 Unit/0.5ml) 5,000 unit Q8 SQ 08/05/17 22:00 09/04/17 21:59 08/06/17 06:11 5,000 UNIT Acetaminophen (Tylenol Tab) 650 mg Q4H PRN PO 08/05/17 20:00 09/04/17 19:59 Al Hydrox/Mg Hydrox/Simethicone (Maalox Max Susp) 15 ml Q4H PRN PO 08/05/17 20:00 09/04/17 19:59 Magnesium Hydroxide (Milk Of Magnesia Susp) 30 ml Q6H PRN PO 08/05/17 20:00 09/04/17 19:59 Polyethylene (Miralax Powder Packet) 17 gm DAILY PRN PO 08/05/17 20:00 09/04/17 19:59 Zolpidem Tartrate (Ambien Tab) 5 mg HSZ PRN PO 08/05/17 20:00 09/04/17 19:59 Ondansetron HCl (Zofran Inj) 4 mg Q6H PRN IV 08/05/17 20:00 09/04/17 19:59 Aspirin (Ecotrin Tab) 81 mg DAILY PO 08/06/17 09:00 09/05/17 08:59 08/06/17 10:51 81 MG Atorvastatin Calcium (Lipitor Tab) 40 mg HS PO 08/05/17 21:00 09/04/17 20:59 08/05/17 23:47 40 MG Hydromorphone HCl (Dilaudid Inj) 0.5 mg Q3H PRN IV 08/05/17 20:00 08/19/17 19:59 Omeprazole (Prilosec - Substitute) 40 mg QAM PO 08/06/17 09:00 09/05/17 08:59 08/06/17 10:52 40 MG Ertapenem 1 gm/ Sodium Chloride 50 ml @ 120 mls/hr Q24H IV 08/05/17 22:00 08/15/17 21:59 08/05/17 22:12 120 MLS/HR Ampicillin Sodium/ Sulbactam Sodium 3000 mg/Sodium Chloride 108 ml @ 200 mls/hr Q6H IV 08/06/17 09:00 08/16/17 08:59 08/06/17 16:06 200 MLS/HR Hydromorphone HCl (Dilaudid Inj) 0.5 mg Q5M PRN IV 08/06/17 12:45 08/06/17 17:45 Meperidine HCl (Demerol Inj) 25 mg Q5M PRN IV 08/06/17 12:45 08/06/17 17:45 Ondansetron HCl (Zofran Inj) 4 mg ONE PRN IV 08/06/17 12:45 08/06/17 17:45 Labetalol HCl (Normodyne IV) 5 mg Q5M PRN IV 08/06/17 12:45 08/06/17 17:45 Ephedrine Sulfate (EpHEDrine SULFATE INJ) 5 mg Q5M PRN IV 08/06/17 12:45 08/06/17 17:45 Atropine Sulfate (Atropine Sulfate 0.1MG/Ml Inj) 0.5 mg Q1M PRN IV 08/06/17 12:45 08/06/17 17:45 Objective Vital Signs Date Time Temp Pulse Resp B/P (MAP) Pulse Ox O2 Delivery O2 Flow Rate FiO2 08/06/17 14:45 36.9 59 20 145/81 (102) 97 08/06/17 08:00 99 Room Air 08/06/17 07:19 36.9 66 18 116/73 (87) 99 08/06/17 00:00 Room Air 08/05/17 21:53 37.1 74 18 148/78 95 Room Air 08/05/17 20:57 74 18 146/86 97 08/05/17 20:49 70 18 146/86 95 08/05/17 19:38 61 16 160/83 97 Room Air 08/05/17 19:07 62 08/05/17 18:04 36.9 67 18 167/89 98 Room Air Physical Exam General Appearance: WD/WN, no apparent distress Eyes: normal inspection ENT: normal ENT inspection, TMs normal Neck: supple Respiratory/Chest: chest non-tender, lungs clear, normal breath sounds, no respiratory distress Cardiovascular: regular rate, rhythm Abdomen: normal bowel sounds, soft, + tenderness (in the epigastric and right upper quadrant area) Extremities: no pedal edema Neurologic/Psychiatric: alert, normal mood/affect, oriented x 3 Skin: normal color Laboratory Results 08/06/17 06:30 08/06/17 06:30 Test 08/05/17 18:22 08/06/17 06:30 Immature Granulocyte % (Auto) 0.3 % White Blood Count 13.65 K/uL (4.8-10.8) Red Blood Count 5.41 M/uL (4.7-6.1) 4.78 M/uL (4.7-6.1) Hemoglobin 15.7 g/dL (14.0-18.0) Hematocrit 44.5 % (42-52) Mean Corpuscular Volume 82.3 fL (80-100) 83.3 fL (80-100) Mean Corpuscular Hemoglobin 29.0 pg (25-34) 27.8 pg (25-34) Mean Corpuscular Hemoglobin Concent 35.3 g/dl (32-36) 33.4 g/dl (32-36) Platelet Count 197 K/uL (130-400) Mean Platelet Volume 9.4 fL (7.4-10.4) 9.8 fL (7.4-10.4) Neutrophils (%) (Auto) 81.3 % Lymphocytes (%) (Auto) 7.7 % Monocytes (%) (Auto) 10.5 % Eosinophils (%) (Auto) 0.1 % Basophils (%) (Auto) 0.1 % Neutrophils # (Auto) 11.11 K/uL (1.4-6.5) Lymphocytes # (Auto) 1.05 K/uL (1.2-3.4) Monocytes # (Auto) 1.43 K/uL (0.11-0.59) Eosinophils # (Auto) 0.01 K/uL (0-0.5) Basophils # (Auto) 0.01 K/uL (0-0.2) Immature Granulocyte # (Auto) 0.04 K/uL (0.00-0.02) Prothrombin Time 10.7 SECONDS (9.0-12.0) Prothromb Time International Ratio 1.0 (0.9-1.1) Activated Partial Thromboplast Time 23.8 SECONDS (21.0-31.0) Partial Thromboplastin Ratio 0.9 Urine Color ANAIS Urine Appearance CLEAR (CLEAR) Urine pH 5.5 (4.5-7.5) Urine Specific [place] 1.027 (1.000-1.030) Urine Protein 1+ (NEG) Urine Glucose (UA) NEG (NEG) Urine Ketones NEG (NEG) Urine Occult Blood 2+ (NEG) Urine Nitrite POS (NEG) Urine Bilirubin 1+ (NEG) Urine Urobilinogen NEG (NEG) Urine Leukocyte Esterase SMALL (NEG) Urine WBC (Auto) 10-30 /hpf (0-5) Urine RBC (Auto) 10-30 /hpf (0-4) Urine Hyaline Casts (Auto) 0 /lpf (0-5) Urine Epithelial Cells (Auto) 20-30 /lpf (0-5) Urine Bacteria (Auto) 1+ (NEG) Urine Mucus PRESENT (NONE PRSENT) Total Creatine Kinase 98 U/L (39-308) Creatine Kinase MB 0.9 ng/ml (0.5-3.6) Creatine Kinase MB Ratio 0.9 (0-3.0) Troponin I < 0.015 ng/ml (0-0.045) RDW Standard Deviation 47.5 fL (36.4-46.3) RDW Coefficient of Variation 15.5 % (11.5-14.5) Anion Gap 6.0 mmol/L (3-11) Est Creatinine Clear Calc Drug Dose 64.6 ml/min Estimated GFR () 89.9 Estimated GFR (Non- 77.5 BUN/Creatinine Ratio 11.0 (10-20) Calcium Level 7.9 mg/dl (8.5-10.1) Magnesium Level 1.9 mg/dl (1.8-2.4) Total Bilirubin 1.7 mg/dl (0.2-1) Direct Bilirubin 0.5 mg/dl (0-0.2) Aspartate Amino Transf (AST/SGOT) 31 U/L (15-37) Alanine Aminotransferase (ALT/SGPT) 50 U/L (12-78) Alkaline Phosphatase 194 U/L (45-117) Total Protein 6.2 gm/dl (6.4-8.2) Albumin 3.2 gm/dl (3.4-5.0) Lipase 1218 U/L (73-393) Assessment and Plan 67-year-old male with past medical history of coronary artery disease status post stent placement, GERD, status post EUS with biopsy of a pancreatic cyst present to the ER with complaints of epigastric pain, nausea and vomiting with started about 2 days ago. Acute pancreatitis with acute calculus cholecystitis - Abdominal ultrasound suggestive of gallbladder thickening to 5 mm with sludge and possible gallstone at the neck of the gallbladder. - Lipase decreased from 4115 to 1218, trend lipases - Alkaline phosphatase decreased from 256 to 194 - Nothing by mouth - Continue IV fluids at 150 mLs/hour - Consult gastroenterology- appreciate input - Consult general surgery for cholecystectomy -Empiric antibiotic coverage with Unasyn every 6 hours CAD: - History of STEMI in 2013 with stent in left circumflex, echo with an EF of 50- 55% hypokinesis of inferolateral and mid inferior wall -Continue aspirin and statin GERD: - Continue PPI DVT prophylaxis: -Heparin subcutaneous Full code Disposition: MedSurg, anticipation of cholecystectomy tonight Discharge planning: home Resident Tracking Resident Involvement: Resident Care Provided Care Provided: Adult Hospital Medicine Reviewed: Pt Seen/Exam by Me History Resident Physician Supervision Note: I interviewed and examined the patient. Discussed with Dr. Borrero and agree with findings and plan as documented in the note. Any exceptions or clarifications are listed here: Pt feeling very well when I saw him, was still awaiting cholecystectomy. No further abd pain. He reports he can easily walk up and down a flight of stairs without CP or SOB. In fact, he walks every day about 2-4 miles up and down steep hills and never has any MACK or CP. Vitals reviewed NAD, AAOx3 RRR no mgr, no carotid bruits bilat CTAB no wcr Abd +BS soft NT ND Ext no edema, 2+ pulses DP bilat Labs, ECG reviewed, Rad reports reviewed 67 yo male with acute calculous cholecystitis and acute gallstone pancreatitis-- > pancreatitis improving, awaiting lap ksenia -continue treatment as above, ivf, pain control, npo until after surgery -follow LFTs, lipase -he is at average risk for surgery as he can achieve at least 4 METS and no recent ACS --> proceed with surgery -continue ASA, statin, not on metoprolol any longer due to previous bradycardia Documented By: Bita Foster
[2017-08-06] MEDS ORDERED: GLYCOPYRROLATE INJ 0.2 MG/ML VIAL ONE (18:15)
[2017-08-06] MEDS ORDERED: NEOSTIGMINE METHYLSULFATE 5 MG/5 ML SYR ONE (18:15)
[2017-08-06] MEDS ORDERED: LABETALOL HCL IV 5 MG/ML 20ML IV ONE (18:15)
[2017-08-06] MEDS ORDERED: BUPIVACAINE 0.5 % 5 MG/1 ML MPF 30ML VIAL ONE (18:36)
--- NOTE | 2017-08-06 18:43 | [facility] Operative Report ---
Operative Report Operative Date Aug 06, 2017. Pre-Operative Diagnosis acute cholecystitis Post-Operative Diagnosis same as preoperative diagnosis, necrotizing cholecystitis Procedure(s) Performed laparscopic cholecystectomy Surgeon Dr. Rodriguez Findings severe inflammation and colonic ileus Specimens A. Gallbladder Drains # [address] MELVIN Anesthesia gen Complication(s) None Disposition Recovery Room / PACU I attest to the content of the Intraoperative Record and any orders documented therein. Any exceptions are noted below.
[2017-08-06] MEDS ORDERED: PROMETHAZINE HCL INJ 25 MG in SODIUM CHLORIDE 0.9% 50ML 50 ML IV PRN (18:45)
[2017-08-06] MEDS ORDERED: PROMETHAZINE HCL INJ 12.5 MG in SODIUM CHLORIDE 0.9% 50ML 50 ML IV PRN (19:00)
--- NOTE | 2017-08-06 19:22 | Anesthesiology Progress Note ---
Anesthesia Post Op Note Date & Time Aug 06, 2017 at 19:22 Vital Signs Pain Intensity: 0 Vital Signs Past 12 Hours Date Time Temp Pulse Resp B/P (MAP) Pulse Ox O2 Delivery O2 Flow Rate FiO2 08/06/17 19:20 50 16 133/70 99 Oxymask 2 08/06/17 19:10 48 16 128/70 99 Oxymask 10 08/06/17 19:00 46 16 134/66 99 Oxymask 10 08/06/17 18:50 36.9 54 16 127/69 100 Oxymask 10 08/06/17 14:45 36.9 59 20 145/81 (102) 97 08/06/17 08:00 99 Room Air Notes Mental Status: alert / awake / arousable, participated in evaluation Pt Amnestic to Procedure: Yes Nausea / Vomiting: adequately controlled Pain: adequately controlled Airway Patency, RR, SpO2: stable & adequate BP & HR: stable & adequate Hydration State: stable & adequate Anesthetic Complications: no major complications apparent
[2017-08-06] MEDS: ATORVASTATIN 20 MG TAB PO SCH (20:41)
--- NOTE | 2017-08-06 21:08 | OPERATIVE REPORT ---
DATE OF OPERATION: 08/06/2017 NAME OF OPERATION: Laparoscopic cholecystectomy. PREOPERATIVE DIAGNOSIS: Acute cholecystitis. POSTOPERATIVE DIAGNOSES: Same with necrotizing cholecystitis and colonic ileus. STAFF SURGEON: Dr. Rodriguez. ANESTHESIA: General. DESCRIPTION OF PROCEDURE: The patient was brought in the operating room and placed on the operating table in supine position. Pneumatic stockings and orogastric tube were placed. His abdomen was prepped and draped in usual fashion. 0.5% plain Marcaine was used to anesthetize all incisions. Incision was made just above the umbilicus, carrying dissection down to the fascia, placing a Veress needle producing pneumoperitoneum. An 11 mm port placed at this level and then a camera passed. The patient had a significant dilation of his colon, which appeared to be a colonic ileus. He did have some elevated lipase and mild pancreatitis on admission. Three 5 mm ports were placed under visualization. The ileus did create a little bit of problem with exposing the gallbladder; however, I was able to retract it and aspirate bile from it, which was thick. Dissection was carried out at the estrella hepatis, the patient had a very inflamed gallbladder consistent with necrotizing cholecystitis. The cystic duct and cystic artery were identified, clipped and transected, the gallbladder was then dissected away from the liver bed, it was very hemorrhagic and it was placed in an Endobag. After appropriate irrigation and hemostasis, a #15 round Donnie-Reardon drain was placed through the lateral 5 mm port site, secured to skin using 3-0 nylon suture and placed in the subhepatic space. At this point, the ports were removed. The gallbladder was removed through the umbilical site. The umbilical fascia closed using interrupted 0 Vicryl suture. Skin reapproximated using 4-0 nylon suture and dressings applied. The patient was transferred to recovery room in stable condition. I attest to the content of the Intraoperative Record and any orders documented therein. Any exception s are noted below.
[2017-08-06] MEDS: ERTAPENEM IV 1 GM in SODIUM CHLOR 0.9% AD-VAN 50ML 50 ML IV SCH (21:41)
[2017-08-06 23:13] LABS: HEMATOCRIT 37.7 % (42-52)
[2017-08-07 03:43] VITALS: BP 99/64; PULSE 52; TEMP 36.7; O2SAT 96
[2017-08-07] MEDS: AMPICILLIN/SULBACTAM SOD INJ 3,000 MG in SODIUM CHLORIDE 0.9% 100ML 100 ML IV SCH ×2 (03:51→07:59)
[2017-08-07 05:05] LABS: HEMATOCRIT 34.8 % (42-52); MEAN CELL VOLUME 83.9 fL (80-100); MEAN CORPUSCULAR HGB CONC 33.3 g/dl (32-36); PLATELET COUNT 109 K/uL (130-400); RED BLOOD COUNT 4.15 M/uL (4.7-6.1); WHITE BLOOD COUNT 9.03 K/uL (4.8-10.8)
[2017-08-07 05:29] LABS: BUN/CREATININE RATIO 14.1 (10-20); CALCIUM 7.8 mg/dl (8.5-10.1); CREATININE 0.93 mg/dl (0.60-1.40); MAGNESIUM 1.9 mg/dl (1.8-2.4); POTASSIUM 4.3 mmol/L (3.5-5.1)
[2017-08-07] MEDS: HEPARIN SOD 5000 UNIT/0.5 ML CARP SQ SCH (05:32)
--- NOTE | 2017-08-07 06:05 | Surgery Progress Note ---
Surgery Progress Note Date of Service Aug 07, 2017. Subjective awake, alert expected drainage H/H, labs ok, lipase normal Objective Vital Signs: Date Time Temp Pulse Resp B/P (MAP) Pulse Ox O2 Delivery O2 Flow Rate FiO2 08/07/17 03:43 36.7 52 14 99/64 (76) 96 Room Air 08/07/17 00:05 Room Air 08/06/17 23:34 36.4 55 14 103/63 (76) 95 Room Air 08/06/17 21:47 36.4 50 18 157/69 (98) 98 Nasal Cannula 2.0 08/06/17 20:53 36.4 48 16 143/75 (97) 97 Room Air 08/06/17 20:17 36.4 48 16 142/86 (104) 97 Room Air 08/06/17 19:45 97 Nasal Cannula 2.0 08/06/17 19:45 Nasal Cannula 2.0 08/06/17 19:30 36.4 47 16 133/66 99 Oxymask 2 08/06/17 19:20 50 16 133/70 99 Oxymask 2 08/06/17 19:10 48 16 128/70 99 Oxymask 10 08/06/17 19:00 46 16 134/66 99 Oxymask 10 08/06/17 18:50 36.9 54 16 127/69 100 Oxymask 10 08/06/17 16:00 97 Room Air 08/06/17 14:45 36.9 59 20 145/81 (102) 97 08/06/17 08:00 99 Room Air 08/06/17 07:19 36.9 66 18 116/73 (87) 99 General Appearance: no apparent distress Respiratory/Chest: no respiratory distress Abdomen: + distended Incision(s): intact Laboratory Results: Results Past 24 Hours Test 08/06/17 06:30 08/06/17 23:03 08/07/17 04:51 Range/Units White Blood Count 11.76 9.03 4.8-10.8 K/uL Red Blood Count 4.78 4.15 4.7-6.1 M/uL Hemoglobin 13.3 12.5 11.6 14.0-18.0 g/dL Hematocrit 39.8 37.7 34.8 42-52 % Mean Corpuscular Volume 83.3 83.9 80-100 fL Mean Corpuscular Hemoglobin 27.8 28.0 25-34 pg Mean Corpuscular Hemoglobin Concent 33.4 33.3 32-36 g/dl RDW Standard Deviation 47.5 47.8 36.4-46.3 fL RDW Coefficient of Variation 15.5 15.6 11.5-14.5 % Platelet Count 157 109 130-400 K/uL Mean Platelet Volume 9.8 9.0 7.4-10.4 fL Sodium Level 139 141 136-145 mmol/L Potassium Level 4.0 4.3 3.5-5.1 mmol/L Chloride Level 108 106 98-107 mmol/L Carbon Dioxide Level 26 27 21-32 mmol/L Anion Gap 6.0 8.0 3-11 mmol/L Blood Urea Nitrogen 11 13 7-18 mg/dl Creatinine 1.00 0.93 0.60-1.40 mg/dl Est Creatinine Clear Calc Drug Dose 64.6 69.5 ml/min Estimated GFR () 89.9 98.1 Estimated GFR (Non- 77.5 84.6 BUN/Creatinine Ratio 11.0 14.1 10-20 Random Glucose 110 117 70-99 mg/dl Calcium Level 7.9 7.8 8.5-10.1 mg/dl Magnesium Level 1.9 1.9 1.8-2.4 mg/dl Total Bilirubin 1.7 1.1 0.2-1 mg/dl Direct Bilirubin 0.5 0.5 0-0.2 mg/dl Aspartate Amino Transf (AST/SGOT) 31 40 15-37 U/L Alanine Aminotransferase (ALT/SGPT) 50 53 12-78 U/L Alkaline Phosphatase 194 166 45-117 U/L Total Protein 6.2 5.3 6.4-8.2 gm/dl Albumin 3.2 2.7 3.4-5.0 gm/dl Lipase 1218 303 73-393 U/L Phosphorus Level 3.0 2.5-4.9 mg/dl Globulin 2.6 2.5-4.0 gm/dl Albumin/Globulin Ratio 1.0 0.9-2 Assessment & Plan 08/07/17- s/p lap ksenia w/ drain- necrotizing cholecystitis- hemorrhagic lipase nl, plts low- hold heparin/ Lovenox dilated colon- concern for ileus- encourage ambulation. will need 2-3 days in hospital
[2017-08-07 07:12] VITALS: BP 105/59; PULSE 58; TEMP 36.6; O2SAT 95
[2017-08-07] MEDS: DOCUSATE SODIUM/SENNA 50/8.6MG TAB PO SCH ×2 (08:02→21:25)
[2017-08-07] MEDS: ASPIRIN 81 MG ECTAB PO SCH (08:02)
--- NOTE | 2017-08-07 09:51 | Gastroenterology Progress Note ---
Progress Note Date of Service: Aug 07, 2017 Subjective Pt evaluation today including: conversation w/ patient, physical exam, chart review, lab review, review of studies, review of inpatient medication list Mr. Gallo is a 67 yr old male patient admitted with pancreatitis on 08/05. He had undergone EUS with biopsy on 2016 for benign pancreatic cyst. He began with pain on 08/04. On arrival, lipase 4000 as Tbili of 2.7, Dbili of 1.1 and AP of 250. WBC was also elevated with a left shift. US with gallbladder wall thickening (5mm). Pain resolved with IV fluids, bowel rest. He underwent Lap ksenia with drain on 08/07 for necrotizing cholecystitis by Dr. Rodriguez. He has been afebrile. This morning, lipase 303, T bili 1.1, AST 40 ALT 53, Alk Phos 166. He is ambulating in his room and has only minor free of pain. MELVIN draining pink liquid. Review of Systems Constitutional: No fever ENT: No hearing loss Respiratory: No cough Cardiac: No chest pain Abdomen: + pain (resolved), No nausea, No vomiting, No diarrhea, No constipation, No GI bleeding Male : No dysuria Neuro: No memory loss Psych: No depression symptoms Heme: No abnormal bleeding/bruising Endo: No fatigue Skin: No rash Medications Current Inpatient Medications Medications (Trade) Dose Ordered Sig/Jay Jay Route Start Time Stop Time Status Last Admin Dose Admin Acetaminophen (Tylenol Tab) 650 mg Q4H PRN PO 08/05/17 20:00 09/04/17 19:59 Al Hydrox/Mg Hydrox/Simethicone (Maalox Max Susp) 15 ml Q4H PRN PO 08/05/17 20:00 09/04/17 19:59 Magnesium Hydroxide (Milk Of Magnesia Susp) 30 ml Q6H PRN PO 08/05/17 20:00 09/04/17 19:59 Polyethylene (Miralax Powder Packet) 17 gm DAILY PRN PO 08/05/17 20:00 09/04/17 19:59 Zolpidem Tartrate (Ambien Tab) 5 mg HSZ PRN PO 08/05/17 20:00 09/04/17 19:59 Ondansetron HCl (Zofran Inj) 4 mg Q6H PRN IV 08/05/17 20:00 09/04/17 19:59 Aspirin (Ecotrin Tab) 81 mg DAILY PO 08/06/17 09:00 09/05/17 08:59 08/07/17 08:02 81 MG Atorvastatin Calcium (Lipitor Tab) 40 mg HS PO 08/05/17 21:00 09/04/17 20:59 08/06/17 20:41 40 MG Hydromorphone HCl (Dilaudid Inj) 0.5 mg Q3H PRN IV 08/05/17 20:00 08/19/17 19:59 Omeprazole (Prilosec - Substitute) 40 mg QAM PO 08/06/17 09:00 09/05/17 08:59 08/07/17 08:01 40 MG Ertapenem 1 gm/ Sodium Chloride 50 ml @ 120 mls/hr Q24H IV 08/05/17 22:00 08/15/17 21:59 08/06/17 21:41 120 MLS/HR Ampicillin Sodium/ Sulbactam Sodium 3000 mg/Sodium Chloride 108 ml @ 200 mls/hr Q6H IV 08/06/17 09:00 08/16/17 08:59 08/07/17 07:59 200 MLS/HR Hydromorphone HCl (Dilaudid Inj) 1 mg Q3H PRN IV 08/06/17 18:45 08/20/17 18:44 Promethazine HCl 25 mg/Sodium Chloride 51 ml @ 204 mls/hr Q6H PRN IV 08/06/17 18:45 09/05/17 18:44 Ondansetron HCl (Zofran Inj) 4 mg Q6H PRN IV 08/06/17 18:45 09/05/17 18:44 08/06/17 19:59 4 MG Promethazine HCl 12.5 mg/Sodium Chloride 50.5 ml @ 204 mls/hr Q6H PRN IV 08/06/17 19:00 09/05/17 18:59 Senna/Docusate Sodium (Senokot S Tab) 1 tab BID PO 08/07/17 09:00 09/06/17 08:59 08/07/17 08:02 1 TAB Objective Vital Signs Date Time Temp Pulse Resp B/P (MAP) Pulse Ox O2 Delivery O2 Flow Rate FiO2 08/07/17 07:51 Room Air 08/07/17 07:12 36.6 58 18 105/59 (74) 95 Room Air 08/07/17 03:43 36.7 52 14 99/64 (76) 96 Room Air 08/07/17 00:05 Room Air 08/06/17 23:34 36.4 55 14 103/63 (76) 95 Room Air 08/06/17 21:47 36.4 50 18 157/69 (98) 98 Nasal Cannula 2.0 08/06/17 20:53 36.4 48 16 143/75 (97) 97 Room Air 08/06/17 20:17 36.4 48 16 142/86 (104) 97 Room Air 08/06/17 19:45 97 Nasal Cannula 2.0 08/06/17 19:45 Nasal Cannula 2.0 08/06/17 19:30 36.4 47 16 133/66 99 Oxymask 2 08/06/17 19:20 50 16 133/70 99 Oxymask 2 08/06/17 19:10 48 16 128/70 99 Oxymask 10 08/06/17 19:00 46 16 134/66 99 Oxymask 10 08/06/17 18:50 36.9 54 16 127/69 100 Oxymask 10 08/06/17 16:00 97 Room Air 08/06/17 14:45 36.9 59 20 145/81 (102) 97 Physical Exam General Appearance: no apparent distress ENT: pharynx normal Neck: supple, thyroid normal, no JVD Respiratory/Chest: lungs clear Cardiovascular: regular rate, rhythm, no JVD, no murmur Abdomen: non tender, soft Extremities: normal inspection, no pedal edema Neurologic/Psych: alert, normal mood/affect, oriented x 3 Skin: normal color, no jaundice Laboratory Results Last 24 Hours Test 08/06/17 23:03 08/07/17 04:51 Hemoglobin 12.5 g/dL 11.6 g/dL Hematocrit 37.7 % 34.8 % White Blood Count 9.03 K/uL Red Blood Count 4.15 M/uL Mean Corpuscular Volume 83.9 fL Mean Corpuscular Hemoglobin 28.0 pg Mean Corpuscular Hemoglobin Concent 33.3 g/dl RDW Standard Deviation 47.8 fL RDW Coefficient of Variation 15.6 % Platelet Count 109 K/uL Mean Platelet Volume 9.0 fL Sodium Level 141 mmol/L Potassium Level 4.3 mmol/L Chloride Level 106 mmol/L Carbon Dioxide Level 27 mmol/L Anion Gap 8.0 mmol/L Blood Urea Nitrogen 13 mg/dl Creatinine 0.93 mg/dl Est Creatinine Clear Calc Drug Dose 69.5 ml/min Estimated GFR () 98.1 Estimated GFR (Non- 84.6 BUN/Creatinine Ratio 14.1 Random Glucose 117 mg/dl Calcium Level 7.8 mg/dl Phosphorus Level 3.0 mg/dl Magnesium Level 1.9 mg/dl Total Bilirubin 1.1 mg/dl Direct Bilirubin 0.5 mg/dl Aspartate Amino Transf (AST/SGOT) 40 U/L Alanine Aminotransferase (ALT/SGPT) 53 U/L Alkaline Phosphatase 166 U/L Total Protein 5.3 gm/dl Albumin 2.7 gm/dl Globulin 2.6 gm/dl Albumin/Globulin Ratio 1.0 Lipase 303 U/L Assessment and Plan Mr. Gallo presented with gallstone pancreatitis and underwent cholecystectomy yesterday. He is doing well post operatively. This does not appear to have been related to his recent EUS or his benign pancreatic cyst. He is doing well post operatively. Plan: 1. No GI procedures planned. 2. Further care per surgery management. 3. GI will sign off. I have seen, examined, and agree with the plan as outlined by RJ Gonzalez. -Soft abdomen, eating normal diet
--- NOTE | 2017-08-07 11:20 | Hospitalist Progress Note ---
Hospitalist Progress Note Date of Service Aug 07, 2017. Subjective Pt evaluation today including: conversation w/ patient, conversation w/ data management consultant (GI) PO Intake: kendrick reg diet this AM Voiding: no voiding problems Pt feeling very well, abd pain is improved since pre-op. Is passing flatus, no stool yet. No CP or SOB. No calf pain All Other Systems: Reviewed and Negative Objective Vital Signs Date Time Temp Pulse Resp B/P (MAP) Pulse Ox O2 Delivery O2 Flow Rate FiO2 08/07/17 07:51 Room Air 08/07/17 07:12 36.6 58 18 105/59 (74) 95 Room Air 08/07/17 03:43 36.7 52 14 99/64 (76) 96 Room Air 08/07/17 00:05 Room Air 08/06/17 23:34 36.4 55 14 103/63 (76) 95 Room Air 08/06/17 21:47 36.4 50 18 157/69 (98) 98 Nasal Cannula 2.0 08/06/17 20:53 36.4 48 16 143/75 (97) 97 Room Air 08/06/17 20:17 36.4 48 16 142/86 (104) 97 Room Air 08/06/17 19:45 97 Nasal Cannula 2.0 08/06/17 19:45 Nasal Cannula 2.0 08/06/17 19:30 36.4 47 16 133/66 99 Oxymask 2 08/06/17 19:20 50 16 133/70 99 Oxymask 2 08/06/17 19:10 48 16 128/70 99 Oxymask 10 08/06/17 19:00 46 16 134/66 99 Oxymask 10 08/06/17 18:50 36.9 54 16 127/69 100 Oxymask 10 08/06/17 16:00 97 Room Air 08/06/17 14:45 36.9 59 20 145/81 (102) 97 Physical Exam General Appearance: WD/WN, no apparent distress Eyes: normal inspection, sclerae normal ENT: hearing grossly normal Neck: trachea midline Respiratory/Chest: lungs clear, normal breath sounds, no respiratory distress, no accessory muscle use Cardiovascular: regular rate, rhythm, no edema, no gallop, no murmur Abdomen: normal bowel sounds, soft, + tenderness (mild at incision sites), + pertinent finding (MELVIN drain coming from right side abdomen with serosang fluid, small amount; dressings c/d/i) Extremities: no pedal edema, no calf tenderness Neurologic/Psychiatric: alert, normal mood/affect, oriented x 3 Skin: normal color, warm/dry, no rash Laboratory Results Last 24 Hours Test 08/06/17 23:03 08/07/17 04:51 Hemoglobin 12.5 g/dL 11.6 g/dL Hematocrit 37.7 % 34.8 % White Blood Count 9.03 K/uL Red Blood Count 4.15 M/uL Mean Corpuscular Volume 83.9 fL Mean Corpuscular Hemoglobin 28.0 pg Mean Corpuscular Hemoglobin Concent 33.3 g/dl RDW Standard Deviation 47.8 fL RDW Coefficient of Variation 15.6 % Platelet Count 109 K/uL Mean Platelet Volume 9.0 fL Sodium Level 141 mmol/L Potassium Level 4.3 mmol/L Chloride Level 106 mmol/L Carbon Dioxide Level 27 mmol/L Anion Gap 8.0 mmol/L Blood Urea Nitrogen 13 mg/dl Creatinine 0.93 mg/dl Est Creatinine Clear Calc Drug Dose 69.5 ml/min Estimated GFR () 98.1 Estimated GFR (Non- 84.6 BUN/Creatinine Ratio 14.1 Random Glucose 117 mg/dl Calcium Level 7.8 mg/dl Phosphorus Level 3.0 mg/dl Magnesium Level 1.9 mg/dl Total Bilirubin 1.1 mg/dl Direct Bilirubin 0.5 mg/dl Aspartate Amino Transf (AST/SGOT) 40 U/L Alanine Aminotransferase (ALT/SGPT) 53 U/L Alkaline Phosphatase 166 U/L Total Protein 5.3 gm/dl Albumin 2.7 gm/dl Globulin 2.6 gm/dl Albumin/Globulin Ratio 1.0 Lipase 303 U/L Assessment and Plan Pt is a 67 yo male with a h/o STEMI/CAD with LCx WARREN placement in 2013, GERD, benign pancreatic cysts, here with acute calculous cholecystitis and acute gallstone pancreatitis Acute gallstone pancreatitis with acute calculus cholecystitis, colonic ileus- now POD#1 s/p lap ksenia- found necrotizing cholecystitis and colonic ileus intraoperatively - Abdominal ultrasound suggestive of gallbladder thickening to 5 mm with sludge and possible gallstone at the neck of the gallbladder. Initially made NPO, given IVFs, Ertapenem (and Unasyn x 1 day) Doing - Lipase 4115 on admission and now trended back to normal, LFTs trending downward -diet advanced - dc IVFs - Consult gastroenterology- appreciate input-f/u as outpt for surveillance of pancreatic cysts - Consult general surgery appreciated -dc Unasyn as already on Ertapenem-continue IV abx for 2-3 more days or as per Surgery -encouraged ambulation, watch ileus CAD:-no current issues, is bradycardic here post-op but asymptomatic - History of STEMI in 2013 with stent in left circumflex, echo with an EF of 50- 55% hypokinesis of inferolateral and mid inferior wall -Continue aspirin and statin -not on metoprolol any longer due to previous bradycardia GERD: - Continue PPI DVT prophylaxis: -Heparin subcutaneous on hold as per Surgery-restart when ok with Surgery Full code Disposition: home in 2-3 days
[2017-08-07 15:14] VITALS: BP 131/74; PULSE 74; TEMP 37.4; O2SAT 91
[2017-08-07] MEDS: ERTAPENEM IV 1 GM in SODIUM CHLOR 0.9% AD-VAN 50ML 50 ML IV SCH ×2 (21:25→22:07)
[2017-08-07] MEDS: ATORVASTATIN 20 MG TAB PO SCH (21:26)
[2017-08-07 23:38] VITALS: BP 136/75; PULSE 69; TEMP 36.8; O2SAT 91
--- NOTE | 2017-08-08 06:36 | Surgery Progress Note ---
Surgery Progress Note Date of Service Aug 08, 2017. Subjective some back discomfort from bed no bm , min flatus no N/V Objective Vital Signs: Date Time Temp Pulse Resp B/P (MAP) Pulse Ox O2 Delivery O2 Flow Rate FiO2 08/07/17 23:38 36.8 69 16 136/75 (95) 91 Room Air 08/07/17 23:15 Room Air 08/07/17 19:50 Room Air 08/07/17 15:14 37.4 74 18 131/74 (93) 91 Room Air 08/07/17 07:51 Room Air 08/07/17 07:12 36.6 58 18 105/59 (74) 95 Room Air General Appearance: no apparent distress Respiratory/Chest: no respiratory distress Abdomen: + distended (decreased bs) Assessment & Plan 08/08/17-no acute chgs- abd distended- need to keep in hosp at least 1 more day- will give MOM, Luis Daniel S- ambulate in hallway leave drain 08/07/17- s/p lap ksenia w/ drain- necrotizing cholecystitis- hemorrhagic lipase nl, plts low- hold heparin/ Lovenox dilated colon- concern for ileus- encourage ambulation. will need 2-3 days in hospital 08/07/17- s/p lap ksenia w/ drain- necrotizing cholecystitis- hemorrhagic lipase nl, plts low- hold heparin/ Lovenox dilated colon- concern for ileus- encourage ambulation. will need 2-3 days in hospital
[2017-08-08 07:20] VITALS: BP 160/80; PULSE 70; TEMP 36.8; O2SAT 90
[2017-08-08] MEDS: MAGNESIUM HYDROXIDE SUSP 30 ML UDC PO SCH ×2 (08:15→21:16)
[2017-08-08] MEDS: ASPIRIN 81 MG ECTAB PO SCH (08:16)
[2017-08-08] MEDS: DOCUSATE SODIUM/SENNA 50/8.6MG TAB PO SCH ×2 (08:16→21:16)
[2017-08-08 09:33] LABS: BASO % 0.2 %; BASO ABS # 0.02 K/uL (0-0.2); COMPLETE YES; EOS % 2.4 %; HEMATOCRIT 37.7 % (42-52); IG% 0.2 %; LYMPH % 7.5 %; LYMPH ABS # 0.65 K/uL (1.2-3.4); MEAN CELL VOLUME 82.9 fL (80-100); MEAN CORPUSCULAR HEMOGLOBIN 27.9 pg (25-34); MEAN CORPUSCULAR HGB CONC 33.7 g/dl (32-36); MEAN PLATELET VOLUME 9.5 fL (7.4-10.4); NEUT % 80.7 %; PLATELET COUNT 134 K/uL (130-400); RED BLOOD COUNT 4.55 M/uL (4.7-6.1); WHITE BLOOD COUNT 8.63 K/uL (4.8-10.8)
[2017-08-08 10:06] LABS: BUN/CREATININE RATIO 12.6 (10-20); MAGNESIUM 2.1 mg/dl (1.8-2.4); POTASSIUM 3.7 mmol/L (3.5-5.1)
--- NOTE | 2017-08-08 10:53 | Hospitalist Progress Note ---
Hospitalist Progress Note Date of Service Aug 08, 2017. Subjective Pt evaluation today including: conversation w/ patient Pt ambulating halls today, doing well, no complaints. No BM yet, passing a lot of flatus, received MOM today All Other Systems: Reviewed and Negative Objective Vital Signs Date Time Temp Pulse Resp B/P (MAP) Pulse Ox O2 Delivery O2 Flow Rate FiO2 08/08/17 08:00 Room Air 08/08/17 07:20 36.8 70 16 160/80 (106) 90 Room Air 08/07/17 23:38 36.8 69 16 136/75 (95) 91 Room Air 08/07/17 23:15 Room Air 08/07/17 19:50 Room Air 08/07/17 15:14 37.4 74 18 131/74 (93) 91 Room Air Physical Exam General Appearance: WD/WN, no apparent distress Eyes: normal inspection, sclerae normal ENT: hearing grossly normal Neck: trachea midline Respiratory/Chest: lungs clear, normal breath sounds, no respiratory distress, no accessory muscle use Cardiovascular: regular rate, rhythm, no edema, no gallop, no murmur Abdomen: normal bowel sounds, soft, + pertinent finding (minimal tenderness over incision sites, no guarding) Extremities: normal inspection, no pedal edema, no calf tenderness Neurologic/Psychiatric: alert, normal mood/affect, oriented x 3 Skin: normal color, warm/dry, no rash Laboratory Results Last 24 Hours Test 08/08/17 09:16 White Blood Count 8.63 K/uL Red Blood Count 4.55 M/uL Hemoglobin 12.7 g/dL Hematocrit 37.7 % Mean Corpuscular Volume 82.9 fL Mean Corpuscular Hemoglobin 27.9 pg Mean Corpuscular Hemoglobin Concent 33.7 g/dl Platelet Count 134 K/uL Mean Platelet Volume 9.5 fL Neutrophils (%) (Auto) 80.7 % Lymphocytes (%) (Auto) 7.5 % Monocytes (%) (Auto) 9.0 % Eosinophils (%) (Auto) 2.4 % Basophils (%) (Auto) 0.2 % Neutrophils # (Auto) 6.95 K/uL Lymphocytes # (Auto) 0.65 K/uL Monocytes # (Auto) 0.78 K/uL Eosinophils # (Auto) 0.21 K/uL Basophils # (Auto) 0.02 K/uL RDW Standard Deviation 46.0 fL RDW Coefficient of Variation 15.1 % Immature Granulocyte % (Auto) 0.2 % Immature Granulocyte # (Auto) 0.02 K/uL Sodium Level 137 mmol/L Potassium Level 3.7 mmol/L Chloride Level 102 mmol/L Carbon Dioxide Level 28 mmol/L Anion Gap 7.0 mmol/L Blood Urea Nitrogen 13 mg/dl Creatinine 1.00 mg/dl Est Creatinine Clear Calc Drug Dose 64.6 ml/min Estimated GFR () 89.9 Estimated GFR (Non- 77.5 BUN/Creatinine Ratio 12.6 Random Glucose 125 mg/dl Calcium Level 8.0 mg/dl Magnesium Level 2.1 mg/dl Total Bilirubin 1.3 mg/dl Direct Bilirubin 0.5 mg/dl Aspartate Amino Transf (AST/SGOT) 41 U/L Alanine Aminotransferase (ALT/SGPT) 63 U/L Alkaline Phosphatase 195 U/L Total Protein 6.3 gm/dl Albumin 2.9 gm/dl Assessment and Plan Pt is a 67 yo male with a h/o STEMI/CAD with LCx WARREN placement in 2013, GERD, benign pancreatic cysts, here with acute calculous cholecystitis and acute gallstone pancreatitis Acute gallstone pancreatitis with acute calculus cholecystitis, colonic ileus- now POD#2 s/p lap ksenia- found necrotizing cholecystitis and colonic ileus intraoperatively - Abdominal ultrasound suggestive of gallbladder thickening to 5 mm with sludge and possible gallstone at the neck of the gallbladder. Initially made NPO, given IVFs, Ertapenem (and Unasyn x 1 day) Doing well post-op, awaiting BM - Lipase 4115 on admission and now trended back to normal, LFTs trending downward and/or stable -diet advanced - Consult gastroenterology- appreciate input-f/u as outpt for surveillance of pancreatic cysts - Consult general surgery appreciated -dc Unasyn as already on Ertapenem-continue IV abx for 2-3 more days or as per Surgery -encouraged ambulation, watch ileus CAD:-no current issues, was bradycardic here post-op but asymptomatic, now bradycardia resolved - History of STEMI in 2013 with stent in left circumflex, echo with an EF of 50- 55% hypokinesis of inferolateral and mid inferior wall -Continue aspirin and statin -not on metoprolol any longer due to previous bradycardia GERD: - Continue PPI DVT prophylaxis: -Heparin subcutaneous on hold as per Surgery-restart when ok with Surgery Full code Disposition: home hopefully tomorrow
[2017-08-08 15:41] VITALS: BP 160/80; PULSE 72; TEMP 36.6; O2SAT 97
[2017-08-08] MEDS: ATORVASTATIN 20 MG TAB PO SCH (21:16)
[2017-08-08] MEDS: ERTAPENEM IV 1 GM in SODIUM CHLOR 0.9% AD-VAN 50ML 50 ML IV SCH (21:16)
[2017-08-08 23:10] VITALS: BP 161/88; PULSE 67; TEMP 37.4; O2SAT 99
[2017-08-09] MEDS: MAGNESIUM HYDROXIDE SUSP 30 ML UDC PO SCH (06:34)
[2017-08-09 07:29] VITALS: BP 138/80; PULSE 66; TEMP 37; O2SAT 90
[2017-08-09] MEDS: ASPIRIN 81 MG ECTAB PO SCH (08:27)
[2017-08-09] MEDS: DOCUSATE SODIUM/SENNA 50/8.6MG TAB PO SCH (08:28)
[2017-08-09] MEDS ORDERED: AMOX875T PO (09:24)
--- NOTE | 2017-08-09 09:29 | Discharge Instructions ---
Discharge Instructions Date of Service Aug 09, 2017. Admission Reason for Admission: Pancreatitis Discharge Discharge Diagnosis / Problem: laparoscopic cholecystectomy Discharge Goals Goal(s): Decrease discomfort Activity Recommendations Activity Limitations: as noted below Lifting Limitations: no more than 10 pounds Shower/Bathe: no limitations (ok to shower) Driving or Machine Use: resume 3 days after discharge . Instructions / Follow-Up Instructions / Follow-Up Dr. Rodriguez in approx 10 days, call [phone] to schedule [address] sutures will be removed at your appt Current Hospital Diet Patient's current hospital diet: Regular Diet Discharge Diet Recommended Diet: Low Fat Diet (for a few days) Procedures Procedures Performed: laparscopic cholecystectomy Pending Studies Studies pending at discharge: no Medical Emergencies . Who to Call and When: Medical Emergencies: If at any time you feel your situation is an emergency, please call 911 immediately. . Non-Emergent Contact Non-Emergency issues call your: Surgeon Call Non-Emergent contact if: you have a fever, temperature is above 101.5, your pain is not controlled, you have any medication questions . "Provider Documentation" section prepared by Gee Granados. . VTE Core Measure Inpt VTE Proph given/why not?: Unfractionated heparin SQ [place] Drug Monitoring Program Search Results: no issues identified
--- NOTE | 2017-08-09 09:32 | Surgery Progress Note ---
Surgery Progress Note Date of Service Aug 09, 2017. Subjective Post OP Day: 3 + feeling well, + bowel movement, + pain controlled (not taking any analgesics) , + diet (regular), No nausea Objective Vital Signs: Date Time Temp Pulse Resp B/P (MAP) Pulse Ox O2 Delivery O2 Flow Rate FiO2 08/09/17 08:00 Room Air 08/09/17 07:29 37.0 66 17 138/80 (99) 90 Room Air 08/08/17 23:35 Room Air 08/08/17 23:10 37.4 67 16 161/88 (112) 99 Room Air 08/08/17 18:53 Room Air 08/08/17 15:41 36.6 72 18 160/80 (106) 97 Room Air Physical Exam: MELVIN drainage (3 cc overnight) Abdomen: non distended, soft Incision(s): clean, dry Assessment & Plan s/p lap ksenia bowel function returned, tolerating diet ok for d/c on po abx drain removed seen earlier this morning by Dr. Rodriguez
[2017-08-09 09:48] VITALS: BP 138/80; PULSE 66; TEMP 37; O2SAT 90
--- NOTE | 2017-08-09 11:58 | Discharge Summary ---
Discharge Summary Date of Service Aug 09, 2017. Discharge Summary Admission Date: Aug 05, 2017 at 20:03 Discharge Date: Aug 09, 2017 Discharge Disposition: Home Principal Diagnosis: Acute calculous cholecystitis, gallstone pancreatitis Problems/Secondary Diagnoses: H/o STEMI/CAD with LCx WARREN placement in 2013 GERD Benign pancreatic cysts Colonic ileus-resolved Sinus bradycardia Procedures: Laparoscopic cholecystectomy RUQ US Chest/Abdomen xray Consultations: General Surgery Gastroenterology Medication Reconciliation New Medications: Amoxicillin & Pot Clavulanate (Augmentin 875-125 mg) 1 Tab Tab 875 MG PO BID, #10 TAB Continued Medications: Aspirin (Aspirin Ec) 81 Mg Tab 81 MG PO DAILY Atorvastatin (Lipitor) 40 Mg Tab 40 MG PO HS, TAB Cetirizine Hcl (Zyrtec) 10 Mg Tab 10 MG PO DAILY PRN for ALLERGIC REACTION, TAB Multiple Vitamins W/ Minerals (Multiple Vitamin/Minerals) 1 Tab Tab 1 TAB PO DAILY Omeprazole (Prilosec) 40 Mg Cap 40 MG PO DAILY Ranitidine Hcl (Zantac) 150 Mg Tab 150 MG PO DAILY PRN for GI Upset, TAB Discharge Exam Doing very well, moving bowels, passing flatus, not taking any pain meds, vitals stable, kendrick reg diet Physical Exam Vitals reviewed General Appearance: WD/WN, no apparent distress Eyes: normal inspection, sclerae normal ENT: hearing grossly normal Neck: trachea midline Respiratory/Chest: lungs clear, normal breath sounds, no respiratory distress, no accessory muscle use Cardiovascular: regular rate, rhythm, no edema, no gallop, no murmur Abdomen: normal bowel sounds, soft, + pertinent finding (minimal tenderness over incision sites, no guarding), dressings all c/d/i, MELVIN drain removed Extremities: normal inspection, trace pedal edema bilat, no calf tenderness Neurologic/Psychiatric: alert, normal mood/affect, oriented x 3 Skin: normal color, warm/dry, no rash Review of Systems: Constitutional: No fever, No chills Eyes: No problem reported ENT: No problem reported Respiratory: No shortness of breath Cardiovascular: No chest pain Abdomen: No nausea, No vomiting, No constipation Musculoskeletal: No problem reported Genitourinary - Male: No problem reported Neurologic: No problem reported Psychiatric: No problem reported Endocrine: No problem reported Hematologic / Lymphatic: No problem reported Integumentary: No problem reported Hospital Course Pt is a 67 yo male with a h/o STEMI/CAD with LCx WARREN placement in 2014, GERD, benign pancreatic cysts, here with acute calculous cholecystitis and acute gallstone pancreatitis Acute gallstone pancreatitis with acute calculus cholecystitis, colonic ileus- now POD#3 s/p lap ksenia- found necrotizing cholecystitis and colonic ileus intraoperatively-RESOLVED - Abdominal ultrasound suggestive of gallbladder thickening to 5 mm with sludge and possible gallstone at the neck of the gallbladder. Initially made NPO, given IVFs, Ertapenem (and Unasyn x 1 day) Doing very well post-op and stable for dc to home - Lipase 4115 on admission and now trended back to normal, LFTs trending downward and/or stable - Consult gastroenterology- appreciate input-f/u as outpt for surveillance of pancreatic cysts - Consult general surgery appreciated -received IV abx while admitted and will finish out course of Augmentin po as outpatient CAD:-no current issues, was bradycardic here post-op but asymptomatic, now bradycardia resolved - History of STEMI in 2013 with stent in left circumflex, echo with an EF of 50- 55% hypokinesis of inferolateral and mid inferior wall -Continue aspirin and statin -not on metoprolol any longer due to previous bradycardia GERD: - Continue PPI Total Time Spent: Greater than 30 minutes This includes examination of the patient, discharge planning, medication reconciliation, and communication with other providers. Discharge Instructions Please refer to the electronic Patient Visit Report (Discharge Instructions) for additional information. Follow-Up General Surgery in 1-2 weeks PCP within 1-2 weeks Additional Copies To Fernando Rodriguez M.D.; Pro,Daniel Mcpherson M.D.
== END 2017-08-09 12:15 | disposition home or self-care (01) | DRG 417 ==
LOC: C.EDB 18:01 → C.MS2W 20:03 → ENRESERV 20:28 → C.MSN 08-06 19:50
PROVIDERS: ADMIT Internal Medicine; ATTEND Family Medicine
PROC: 0FT44ZZ Resection of Gallbladder, Percutaneous Endoscopic Approach (ICD-10-PCS; principal; 2017-08-06 13:00)
DX: K80.00 Calculus of gallbladder with acute cholecystitis without obstruction (principal); K85.10 Biliary acute pancreatitis without necrosis or infection; K56.7 Ileus, unspecified; I25.10 Atherosclerotic heart disease of native coronary artery without angina pectoris; K21.9 Gastro-esophageal reflux disease without esophagitis; I25.2 Old myocardial infarction; Z79.82 Long term (current) use of aspirin; Z79.899 Other long term (current) drug therapy; Z95.5 Presence of coronary angioplasty implant and graft

== ENCOUNTER → 2017-09-06 | Outpatient (CLI) | payer OTHER ==
[~2017-09-06] MED LIST changes: -ASPEC81 PO; +ASPI81TA28 PO; +ATOR-24 PO; -FEXO1TAB45 PO; -LPR25 PO; -LPT40 PO; +OMEP40CA41 PO; -PLV75 PO
[2017-09-06 12:41] LABS: HEMATOCRIT 42.7 % (42-52); MEAN CELL VOLUME 83.7 fL (80-100); MEAN CORPUSCULAR HEMOGLOBIN 27.1 pg (25-34); MEAN CORPUSCULAR HGB CONC 32.3 g/dl (32-36); MEAN PLATELET VOLUME 9.6 fL (7.4-10.4); PLATELET COUNT 206 K/uL (130-400); WHITE BLOOD COUNT 5.09 K/uL (4.8-10.8)
[2017-09-06 13:14] LABS: ESTIMATED AVERAGE GLUCOSE 120 mg/dl; HA1C FLAG Normal (Normal)
[2017-09-06 13:17] LABS: ALT/SGPT 40 U/L (12-78); BLOOD UREA NITROGEN 14 mg/dl (7-18); BUN/CREATININE RATIO 13.5 (10-20); CALCIUM 8.9 mg/dl (8.5-10.1); CARBON DIOXIDE 28 mmol/L (21-32); CHLORIDE 104 mmol/L (98-107); CHOLESTEROL 132 mg/dl (0-200); CREATININE 1.06 mg/dl (0.60-1.40); GLUCOSE 87 mg/dl (70-99); POTASSIUM 3.8 mmol/L (3.5-5.1); SODIUM 139 mmol/L (136-145)
[2017-09-06 13:20] LABS: ALB/GLOB RATIO 1.1 (0.9-2); ALKALINE PHOSPHATASE 253 U/L (45-117); AST/SGOT 30 U/L (15-37); CHOLESTEROL/HDL RATIO 2.9; HDL CHOLESTEROL 46 mg/dl; LDL CHOLESTEROL CALCULATED 70 mg/dl; TRIGLYCERIDES 80 mg/dl (0-150); VERY LOW DENSITY LIPOPROT CALC 16 mg/dl
== END | disposition home or self-care (01) ==
LOC: C.LABMFLN 08:55
PROVIDERS: ATTEND Internal Medicine Cardiovascular Disease
DX: E78.5 Hyperlipidemia, unspecified (principal); I10 Essential (primary) hypertension; I25.10 Atherosclerotic heart disease of native coronary artery without angina pectoris; R73.01 Impaired fasting glucose; R74.8 Abnormal levels of other serum enzymes